=== PATIENT | female | born 1960 | race Hispanic/Latino ===

== ENCOUNTER 2017-07-20 18:04 | Inpatient (IN) | payer BC ==
[~2017-07-20] VITALS: Ht 152.4 cm; Wt 81.3 kg
[2017-07-20] MEDS ORDERED: CLINDAMYCIN PHOS 900MG/ D5W 50 50 ML IV STA (18:30)
[2017-07-20] MEDS ORDERED: IBUPROFEN 600 MG TAB PO STA (18:30)
[2017-07-20] MEDS ORDERED: SODIUM CHLORIDE 0.9% 1000ML 1,000 ML IV STA (18:30)
[2017-07-20] MEDS ORDERED: HYDROCODONE/APAP 10MG-325MG TAB PO ONE (18:30)
[2017-07-20 19:32] LABS: BASOPHILS # (AUTO) 0.1 (0.0-0.1); BASOPHILS % 0.3 % (0.0-1.0); EOSINOPHILS # (AUTO) 0.1 (0.0-0.4); EOSINOPHILS % 0.7 % (0.0-6.0); HEMATOCRIT 42.9 % (34.2-44.1); HEMOGLOBIN 14.9 g/dL (12.0-16.0); LYMPHOCYTES # (AUTO) 1.5 (1.0-3.2); MEAN CORPUSCULAR HEMOGLOBIN 28.2 pg (28-32); MEAN CORPUSCULAR HGB CONC 34.7 g/dL (31-35); MEAN CORPUSCULAR VOLUME 81.1 fL (81-99); MONOCYTES # (AUTO) 1.4 (0.2-0.8); MONOCYTES % 9.4 % (4.4-11.3); NEUTROPHILS # (AUTO) 11.9 (2.1-6.9); PLATELET COUNT 276 x10e3/uL (140-360); RED BLOOD COUNT 5.29 x10e6/uL (3.6-5.1); RED CELL DISTRIBUTION WIDTH 12.3 % (11.7-14.4)
[2017-07-20] MEDS ORDERED: DEXTROSE 50% SYRINGE 50 ML IV PRN (19:45)
[2017-07-20] MEDS ORDERED: ONDANSETRON HCL INJ 2 MG/ML VIAL IV PRN (19:45)
[2017-07-20 19:46] LABS: ALANINE AMINOTRANSFERASE 18 IU/L (0-55); ALBUMIN 3.6 g/dL (3.5-5.0); ALBUMIN/GLOBULIN RATIO 0.8 (0.8-2.0); ALKALINE PHOSPHATASE 154 IU/L (40-150); ANION GAP 16.6 mmol/L (8-16); BLOOD UREA NITROGEN 9 mg/dL (7-26); BUN/CREATININE RATIO 12 (6-25); CALCIUM 10.3 mg/dL (8.4-10.2); CARBON DIOXIDE 25 mmol/L (22-29); CHLORIDE 101 mmol/L (98-107); CREATININE, SERUM 0.74 mg/dL (0.57-1.11); EST GLOMERULAR FILTRATION RATE > 60 ML/MIN (60-); GLUCOSE 320 mg/dL (74-118); POTASSIUM 4.6 mmol/L (3.5-5.1); SODIUM 138 mmol/L (136-145)
--- NOTE | 2017-07-20 19:52 | Diagnostic Imaging Report ---
EXAMINATION: Head CT without contrast. HISTORY:Severe dizziness. COMPARISON:None. TECHNIQUE: Multidetector axial images were obtained from the foramen magnum to the vertex without contrast. The images were reconstructed using brain and bone algorithms. Thin section brain images were reformatted into coronal and sagittal planes. Intravenous contrast: None IMAGE QUALITY: Acceptable. FINDINGS: Skull/scalp: Small mid/right frontal scalp edema/hematoma. Moderate right periorbital soft tissue edema/hematoma. No acute depressed or displaced calvarial fracture. Parenchyma: Nonspecific few, scattered supratentorial white matter patchy hypodensity are likely related to small vessel ischemic changes. Dystrophic calcification in right caudate head is physiologic. No acute hemorrhage, mass or acute major vascular territorial infarct. Arteries: Atherosclerotic calcification in carotid siphon and V4 segment of left vertebral artery. Dural sinuses: No abnormal density suggestive of thrombosis. Ventricles: No hydrocephalus or displacement. Incidental cavum septum pellucidum and cavum vargae, a normal anatomic variant. Extra-axial spaces: No abnormal density. Brain volume: Mild generalized cerebral volume loss. Craniocervical junction: No mass, Chiari malformation, or basilar invagination. Sella: No mass. Paranasal/mastoid sinuses: Mild mucosal thickening in bilateral ethmoid sinuses. IMPRESSION: 1. Small mid/right frontal scalp edema/hematoma and moderate right periorbital soft tissue edema/hematoma. No acute calvarial fracture. 2. No acute posttraumatic intracranial abnormality. 3. Mild supratentorial white matter microvascular ischemic changes and mild generalized cerebral volume loss. Signed by: Dr. Reshma See M.D. on 07/20/2017 7:48 PM
[2017-07-20] MEDS ORDERED: HYDROMORPHONE 2MG/ML INJ IV PRN (20:00)
[2017-07-20] MEDS: SODIUM CHLORIDE 0.9% 1000ML 1,000 ML IV SCH (21:55)
[2017-07-20] MEDS: VANCOMYCIN 1GM/NS 250 ML 250 ML IV SCH (21:56)
[2017-07-20] MEDS: INSULIN REGULAR, HUMAN 100 UNIT/1 ML 3ML VIAL SQ SCH (21:56)
[2017-07-20] MEDS ORDERED: GLIPIZIDE5 MG PO (21:57)
[2017-07-20] MEDS ORDERED: METFORMIN HCL500 MG PO (21:57)
[2017-07-20] MEDS: PIPER-TAZ 3.375 GM 50 ML IV SCH (23:44)
[2017-07-21] MEDS: ACETAMINOPHEN 325 MG TAB PO PRN ×4 (03:07→21:05)
[2017-07-21 04:59] LABS: BASOPHILS # (AUTO) 0.1 (0.0-0.1); BASOPHILS % 0.5 % (0.0-1.0); EOSINOPHILS # (AUTO) 0.2 (0.0-0.4); EOSINOPHILS % 1.6 % (0.0-6.0); HEMATOCRIT 36.3 % (34.2-44.1); HEMOGLOBIN 12.5 g/dL (12.0-16.0); LYMPHOCYTES # (AUTO) 1.4 (1.0-3.2); LYMPHOCYTES % 11.2 % (18.0-39.1); MEAN CORPUSCULAR HEMOGLOBIN 27.8 pg (28-32); MEAN CORPUSCULAR HGB CONC 34.4 g/dL (31-35); MEAN CORPUSCULAR VOLUME 80.8 fL (81-99); MONOCYTES # (AUTO) 1.6 (0.2-0.8); MONOCYTES % 12.2 % (4.4-11.3); NEUTROPHILS # (AUTO) 9.5 (2.1-6.9); NEUTROPHILS % 74.1 % (38.7-80.0); PLATELET COUNT 221 x10e3/uL (140-360); RED BLOOD COUNT 4.49 x10e6/uL (3.6-5.1); RED CELL DISTRIBUTION WIDTH 12.2 % (11.7-14.4)
[2017-07-21 05:20] LABS: ALANINE AMINOTRANSFERASE 14 IU/L (0-55); ALBUMIN 2.7 g/dL (3.5-5.0); ALBUMIN/GLOBULIN RATIO 0.7 (0.8-2.0); ALKALINE PHOSPHATASE 116 IU/L (40-150); ANION GAP 9.4 mmol/L (8-16); BLOOD UREA NITROGEN 12 mg/dL (7-26); BUN/CREATININE RATIO 20 (6-25); CALCIUM 8.8 mg/dL (8.4-10.2); CARBON DIOXIDE 23 mmol/L (22-29); CHLORIDE 103 mmol/L (98-107); CREATININE, SERUM 0.59 mg/dL (0.57-1.11); EST GLOMERULAR FILTRATION RATE > 60 ML/MIN (60-); GLUCOSE 204 mg/dL (74-118); SODIUM 132 mmol/L (136-145)
[2017-07-21] MEDS: SODIUM CHLORIDE 0.9% 1000ML 1,000 ML IV SCH ×3 (05:33→07:54)
[2017-07-21] MEDS: PIPER-TAZ 3.375 GM 50 ML IV SCH ×3 (05:33→22:03)
[2017-07-21 05:37] LABS: POTASSIUM 3.4 mmol/L (3.5-5.1)
[2017-07-21] MEDS: VANCOMYCIN 1GM/NS 250 ML 250 ML IV SCH ×2 (07:40→20:26)
[2017-07-21] MEDS: INSULIN REGULAR, HUMAN 100 UNIT/1 ML 3ML VIAL SQ SCH ×4 (07:54→21:07)
[2017-07-21] MEDS ORDERED: PROMETHAZINE 12.5MG/ NACL 0.9% 12.5 MG/50 ML BAG IV PRN (12:45)
[2017-07-21] MEDS ORDERED: POTASSIUM CHLORIDE 20 MEQ TAB CR PO ONE (13:30)
[2017-07-21] MEDS: GLIPIZIDE 5 MG TAB PO SCH (13:34)
--- NOTE | 2017-07-21 14:18 | History and Physical ---
PRIMARY CARE PROVIDER: Dr. Vic Caro. CHIEF COMPLAINT: Right periorbital swelling and erythema. HISTORY OF PRESENT ILLNESS: Ms. Lewis is a 56-year-old lady. She bumped her head on the crown of her head at work about 2 days ago. Yesterday, when she came home from work, she felt kind of dizzy and lightheaded. She went to bed and woke up several hours later with swelling and erythema of the right side of her face, and she came to the ER for evaluation. REVIEW OF SYSTEMS: She has had subjective fever and chills. She denies weight loss. She denies sinus congestion or sore throat. She denies chest pain or palpitations. She denies shortness of breath, wheezing or cough. She denies abdominal pain, nausea, vomiting, diarrhea or melena. She denies dysuria or flank pain. She denies rash or pruritus. She denies joint pain or swelling. She has a headache and some dizziness. She denies loss of consciousness. She denies depression, agitation, homicidal or suicidal ideation. PAST MEDICAL HISTORY: Significant for longstanding, type-2 diabetes for which she takes glipizide 5 mg daily and metformin 500 mg daily. She has a history of hysterectomy and appendectomy many years ago. ALLERGIES SHE HAS A STATED ALLERGY TO RED SNAPPER FISH. FAMILY HISTORY: Significant for diabetes. SOCIAL HISTORY: The patient is . Vietnamese is her primary language. She does not smoke, drink or use illegal drugs. She is generally independently functioning. PHYSICAL EXAMINATION PSYCHIATRIC: She is alert and oriented times 3 with normal mood and affect. CONSTITUTIONAL: She has a normal body habitus. She is in no acute distress. VITAL SIGNS: Blood pressure 140/76. Pulse rate 78. Respiratory rate 16. O2 sat is 95%. Temperature currently 99.1. It was 101.8 on admission. HEENT: Her head is atraumatic. She has swelling and erythema about the right orbit and right cheek, maxilla, faith and right side of the forehead. She is anicteric. Oropharynx is clear. Ears and nares are without erythema or discharge. Oropharynx is clear. NECK: Supple. No mass or thyromegaly. LYMPHATIC SYSTEM: She has no palpable cervical, axillary or inguinal adenopathy. CARDIOVASCULAR: Heart has regular rate and rhythm without murmur or extra heart sound. She has no carotid bruit. She has no peripheral edema. She has palpable dorsal pedal pulses. RESPIRATORY: Lungs are clear to auscultation and percussion with normal respiratory effort. GASTROINTESTINAL: Abdomen is soft without organomegaly, masses or tenderness. She has normal bowel sounds present. CUTANEOUS: His skin is warm and dry to touch with no rash or skin breakdown. She has a periorbital erythema and swelling as noted above. MUSCULOSKELETAL: Her joints are in normal alignment without erythema or swelling. She has no calf tenderness. NEUROLOGIC: Exam is nonfocal with intact cranial nerves and no motor or sensory deficits. DIAGNOSTIC STUDIES: CT scan of the head showed right periorbital soft-tissue swelling. It also shows some chronic microvascular changes and atrophy consistent with age. Her flu screen is negative. CBC shows a white count of 15.05 with 79% neutrophils, 10% lymphocytes, 9% monocytes. Hemoglobin 14.9, hematocrit 42.9, platelet count 276,000. Her chemistry shows normal electrolytes. CO2 25. Creatinine 0.74 and BUN 9 for a normal GFR. Glucose is 320. Calcium 10.3. Transaminases, bilirubin and alk phos are normal. IMPRESSION AND PLAN 1. Right periorbital cellulitis with sepsis. The patient has been started on IV vancomycin and Zosyn empirically. Blood cultures are pending. 2. Type-2 diabetes is poorly controlled. Will continue glipizide. Will increase metformin to twice daily and add sliding scale insulin. 3. For prophylaxis, will use SCDs for DVT prophylaxis and Pepcid for GI prophylaxis. Job#: [id number]
[2017-07-21] MEDS: FAMOTIDINE 20 MG TAB PO SCH (17:18)
[2017-07-21 20:46] VITALS: BP 138/91
[2017-07-21 23:46] VITALS: BP 120/72
[2017-07-22 03:14] VITALS: BP 105/60
[2017-07-22] MEDS: PIPER-TAZ 3.375 GM 50 ML IV SCH ×3 (05:01→22:00)
[2017-07-22 05:02] VITALS: BP 105/70
[2017-07-22] MEDS: ACETAMINOPHEN 325 MG TAB PO PRN ×3 (06:15→18:41)
[2017-07-22 06:57] LABS: BASOPHILS # (AUTO) 0.1 (0.0-0.1); BASOPHILS % 0.5 % (0.0-1.0); EOSINOPHILS # (AUTO) 0.3 (0.0-0.4); HEMATOCRIT 37.9 % (34.2-44.1); HEMOGLOBIN 12.9 g/dL (12.0-16.0); LYMPHOCYTES # (AUTO) 1.6 (1.0-3.2); MEAN CORPUSCULAR HEMOGLOBIN 27.8 pg (28-32); MEAN CORPUSCULAR VOLUME 81.7 fL (81-99); MONOCYTES % 10.8 % (4.4-11.3); NEUTROPHILS # (AUTO) 6.4 (2.1-6.9); NEUTROPHILS % 68.2 % (38.7-80.0); PLATELET COUNT 244 x10e3/uL (140-360); RED BLOOD COUNT 4.64 x10e6/uL (3.6-5.1); RED CELL DISTRIBUTION WIDTH 12.3 % (11.7-14.4)
[2017-07-22 07:40] LABS: ANION GAP 13.7 mmol/L (8-16); BLOOD UREA NITROGEN 8 mg/dL (7-26); BUN/CREATININE RATIO 15 (6-25); CALCIUM 9.1 mg/dL (8.4-10.2); CARBON DIOXIDE 24 mmol/L (22-29); CHLORIDE 107 mmol/L (98-107); CREATININE, SERUM 0.55 mg/dL (0.57-1.11); EST GLOMERULAR FILTRATION RATE > 60 ML/MIN (60-); GLUCOSE 222 mg/dL (74-118); POTASSIUM 3.7 mmol/L (3.5-5.1); SODIUM 141 mmol/L (136-145)
[2017-07-22] MEDS: FAMOTIDINE 20 MG TAB PO SCH ×2 (09:15→17:44)
[2017-07-22] MEDS: VANCOMYCIN 1GM/NS 250 ML 250 ML IV SCH ×2 (09:15→23:55)
[2017-07-22] MEDS: METFORMIN HCL 500 MG TAB PO SCH ×2 (09:15→17:44)
[2017-07-22] MEDS: INSULIN REGULAR, HUMAN 100 UNIT/1 ML 3ML VIAL SQ SCH ×4 (09:15→21:30)
[2017-07-22] MEDS: GLIPIZIDE 5 MG TAB PO SCH (09:15)
[2017-07-22 10:03] LABS: THYROID STIMULATING HORMONE 1.003 uIU/mL (0.350-4.940)
[2017-07-23] MEDS: ACETAMINOPHEN 325 MG TAB PO PRN ×3 (04:00→14:20)
[2017-07-23 04:45] LABS: BASOPHILS # (AUTO) 0.1 (0.0-0.1); BASOPHILS % 0.6 % (0.0-1.0); EOSINOPHILS # (AUTO) 0.3 (0.0-0.4); EOSINOPHILS % 3.1 % (0.0-6.0); HEMATOCRIT 37.3 % (34.2-44.1); HEMOGLOBIN 12.6 g/dL (12.0-16.0); LYMPHOCYTES % 22.2 % (18.0-39.1); MEAN CORPUSCULAR HEMOGLOBIN 27.8 pg (28-32); MEAN CORPUSCULAR HGB CONC 33.8 g/dL (31-35); MEAN CORPUSCULAR VOLUME 82.2 fL (81-99); MONOCYTES # (AUTO) 1.1 (0.2-0.8); MONOCYTES % 11.9 % (4.4-11.3); NEUTROPHILS # (AUTO) 5.6 (2.1-6.9); NEUTROPHILS % 61.8 % (38.7-80.0); PLATELET COUNT 268 x10e3/uL (140-360); RED BLOOD COUNT 4.54 x10e6/uL (3.6-5.1); RED CELL DISTRIBUTION WIDTH 12.6 % (11.7-14.4)
[2017-07-23] MEDS: PIPER-TAZ 3.375 GM 50 ML IV SCH ×2 (05:45→14:20)
--- NOTE | 2017-07-23 06:58 | Diagnostic Imaging Report ---
EXAMINATION: CHEST SINGLE (PORTABLE) INDICATION: Pneumonia, shortness of breath COMPARISON: None FINDINGS: TUBES and LINES: None. LUNGS: Lungs are not well inflated. Lungs are clear. There is no evidence of pneumonia or pulmonary edema. PLEURA: No pleural effusion or pneumothorax. HEART AND MEDIASTINUM: The cardiomediastinal silhouette is unremarkable. BONES AND SOFT TISSUES: No acute osseous lesion. Soft tissues are unremarkable. UPPER ABDOMEN: No free air under the diaphragm. IMPRESSION: No acute thoracic abnormality. Signed by: Dr. Devon Ovalle M.D. on 07/23/2017 6:55 AM
[2017-07-23 07:51] LABS: BLOOD UREA NITROGEN 8 mg/dL (7-26); BUN/CREATININE RATIO 14 (6-25); CALCIUM 9.3 mg/dL (8.4-10.2); CARBON DIOXIDE 26 mmol/L (22-29); CHLORIDE 104 mmol/L (98-107); CREATININE, SERUM 0.58 mg/dL (0.57-1.11); EST GLOMERULAR FILTRATION RATE > 60 ML/MIN (60-); GLUCOSE 223 mg/dL (74-118); SODIUM 139 mmol/L (136-145)
[2017-07-23] MEDS: GLIPIZIDE 5 MG TAB PO SCH (08:31)
[2017-07-23] MEDS: OSELTAMIVIR PHOSPHATE 75 MG CAP PO SCH ×2 (08:31→16:50)
[2017-07-23] MEDS: VANCOMYCIN 1GM/NS 250 ML 250 ML IV SCH ×2 (08:31→23:00)
[2017-07-23] MEDS: INSULIN REGULAR, HUMAN 100 UNIT/1 ML 3ML VIAL SQ SCH ×4 (08:31→21:00)
[2017-07-23] MEDS: FAMOTIDINE 20 MG TAB PO SCH ×2 (08:31→16:50)
[2017-07-23] MEDS: METFORMIN HCL 500 MG TAB PO SCH ×2 (08:31→16:50)
[2017-07-23 12:15] VITALS: BP 130/86
[2017-07-23 13:15] VITALS: BP 130/86
[2017-07-23 14:04] VITALS: BP 130/86
[2017-07-23] MEDS ORDERED: SODIUM CHLORIDE 0.9% 250ML 250 ML ONE ×2 (14:23→22:47)
[2017-07-23] MEDS ORDERED: ACETAMIN/BUTALBITAL/CAFFEINE TAB PO PRN (14:30)
[2017-07-23 16:00] VITALS: BP 123/78
[2017-07-23 22:04] VITALS: BP 128/78
[2017-07-24] VITALS (8 sets, daily range): BP systolic 98–139; BP diastolic 63–88
[2017-07-24] MEDS: PIPER-TAZ 3.375 GM 50 ML IV SCH ×4 (00:30→21:49)
[2017-07-24] MEDS: ACETAMINOPHEN 325 MG TAB PO PRN ×3 (06:31→18:36)
[2017-07-24 08:19] LABS: BASOPHILS % 0.6 % (0.0-1.0); EOSINOPHILS % 0.2 % (0.0-6.0); HEMATOCRIT 26.8 % (34.2-44.1); HEMOGLOBIN 8.5 g/dL (12.0-16.0); LYMPHOCYTES # (AUTO) 0.6 (1.0-3.2); LYMPHOCYTES % 11.5 % (18.0-39.1); MEAN CORPUSCULAR HEMOGLOBIN 34.6 pg (28-32); MEAN CORPUSCULAR HGB CONC 31.7 g/dL (31-35); MEAN CORPUSCULAR VOLUME 108.9 fL (81-99); MONOCYTES # (AUTO) 0.8 (0.2-0.8); MONOCYTES % 15.4 % (4.4-11.3); NEUTROPHILS # (AUTO) 3.9 (2.1-6.9); NEUTROPHILS % 71.4 % (38.7-80.0); PLATELET COUNT 52 x10e3/uL (140-360); RED BLOOD COUNT 2.46 x10e6/uL (3.6-5.1)
[2017-07-24] MEDS: METFORMIN HCL 500 MG TAB PO SCH ×2 (08:21→17:12)
[2017-07-24] MEDS: VANCOMYCIN 1GM/NS 250 ML 250 ML IV SCH ×2 (08:21→21:40)
[2017-07-24] MEDS: GLIPIZIDE 5 MG TAB PO SCH (08:21)
[2017-07-24] MEDS: FAMOTIDINE 20 MG TAB PO SCH ×2 (08:21→17:12)
[2017-07-24] MEDS: OSELTAMIVIR PHOSPHATE 75 MG CAP PO SCH ×2 (08:21→17:12)
[2017-07-24] MEDS: INSULIN REGULAR, HUMAN 100 UNIT/1 ML 3ML VIAL SQ SCH ×4 (08:21→21:49)
[2017-07-24 08:28] LABS: ANION GAP 8.5 mmol/L (8-16); BLOOD UREA NITROGEN 14 mg/dL (7-26); BUN/CREATININE RATIO 28 (6-25); CALCIUM 8.4 mg/dL (8.4-10.2); CARBON DIOXIDE 35 mmol/L (22-29); CHLORIDE 98 mmol/L (98-107); EST GLOMERULAR FILTRATION RATE > 60 ML/MIN (60-); GLUCOSE 83 mg/dL (74-118); POTASSIUM 3.5 mmol/L (3.5-5.1); SODIUM 138 mmol/L (136-145)
[2017-07-24 09:12] LABS: MAGNESIUM 1.2 MG/DL (1.3-2.1)
[2017-07-24 09:34] LABS: PLATELET ESTIMATE MODERATELY DECREASED; RBC MORPHOLOGY COMMENT NORMAL
[2017-07-24 09:35] LABS: ANISOCYTOSIS SLIG; HYPOCHROMASIA SLIGHT; PLATELET MORPHOLOGY COMMENT NORMAL; POIKILOCYTOSIS SLIGHT
[2017-07-24] MEDS ORDERED: MAGNESIUM SULFATE 2GM/50ML 50 ML IV ONE (20:30)
[2017-07-25 00:40] VITALS: BP 140/74
[2017-07-25] MEDS: PIPER-TAZ 3.375 GM 50 ML IV SCH ×2 (05:42→13:47)
[2017-07-25 07:04] LABS: BASOPHILS # (AUTO) 0.1 (0.0-0.1); BASOPHILS % 0.7 % (0.0-1.0); EOSINOPHILS # (AUTO) 0.3 (0.0-0.4); EOSINOPHILS % 4.1 % (0.0-6.0); LYMPHOCYTES # (AUTO) 1.7 (1.0-3.2); LYMPHOCYTES % 23.5 % (18.0-39.1); MEAN CORPUSCULAR HEMOGLOBIN 27.8 pg (28-32); MEAN CORPUSCULAR HGB CONC 33.8 g/dL (31-35); MEAN CORPUSCULAR VOLUME 82.5 fL (81-99); MONOCYTES # (AUTO) 0.8 (0.2-0.8); MONOCYTES % 11.6 % (4.4-11.3); NEUTROPHILS # (AUTO) 4.2 (2.1-6.9); NEUTROPHILS % 59.4 % (38.7-80.0); PLATELET COUNT 295 x10e3/uL (140-360); RED BLOOD COUNT 4.85 x10e6/uL (3.6-5.1)
[2017-07-25 07:15] LABS: HEMOGLOBIN 13.5 g/dL (12.0-16.0)
[2017-07-25 07:25] LABS: BLOOD UREA NITROGEN 13 mg/dL (7-26); BUN/CREATININE RATIO 23 (6-25); CALCIUM 9.4 mg/dL (8.4-10.2); CARBON DIOXIDE 24 mmol/L (22-29); CHLORIDE 106 mmol/L (98-107); CREATININE, SERUM 0.57 mg/dL (0.57-1.11); EST GLOMERULAR FILTRATION RATE > 60 ML/MIN (60-); GLUCOSE 238 mg/dL (74-118); MAGNESIUM 1.9 MG/DL (1.3-2.1); SODIUM 140 mmol/L (136-145)
[2017-07-25] MEDS ORDERED: GLIPIZIDE 5 MG TAB PO SCH (07:30)
[2017-07-25] MEDS: INSULIN REGULAR, HUMAN 100 UNIT/1 ML 3ML VIAL SQ SCH ×3 (07:30→16:13)
[2017-07-25] MEDS: FAMOTIDINE 20 MG TAB PO SCH ×2 (07:30→16:12)
[2017-07-25 08:00] VITALS: BP 140/74
[2017-07-25] MEDS: METFORMIN HCL 500 MG TAB PO SCH ×2 (08:00→16:12)
[2017-07-25 08:14] VITALS: BP 116/58
[2017-07-25] MEDS: VANCOMYCIN 1GM/NS 250 ML 250 ML IV SCH (08:30)
[2017-07-25] MEDS: ZINC SULFATE 220 MG CAP PO SCH ×2 (09:00→16:13)
[2017-07-25] MEDS: MAGNESIUM OXIDE 400 MG TAB PO SCH ×2 (09:00→16:12)
[2017-07-25] MEDS: ASCORBIC ACID 500 MG TAB PO SCH ×2 (09:00→16:12)
[2017-07-25] MEDS ORDERED: MULTIVITAMINS/MINERALS TAB PO SCH (09:00)
[2017-07-25] MEDS: OSELTAMIVIR PHOSPHATE 75 MG CAP PO SCH ×2 (09:00→16:12)
[2017-07-25] MEDS: OYST-CAL-D 500MG TABLET PO SCH ×2 (09:00→15:00)
[2017-07-25] MEDS ORDERED: SODIUM CHLORIDE 0.9% 250ML 250 ML ONE (10:50)
[2017-07-25 11:57] VITALS: BP 130/68
[2017-07-25] MEDS ORDERED: ZINC SULFATE220 M1 PO (15:04)
[2017-07-25] MEDS ORDERED: TAMIFLU75 MG PO (15:04)
[2017-07-25] MEDS ORDERED: METFORMIN HCL500 MG PO (15:04)
[2017-07-25] MEDS ORDERED: BACTRIM DS TAB1 EACH PO (15:04)
[2017-07-25] MEDS ORDERED: LEVAQUIN500 MG PO (15:04)
[2017-07-25] MEDS ORDERED: Multivitamins/Minerals PO (15:04)
[2017-07-25] MEDS ORDERED: ASCORBIC ACID500 MG PO (15:04)
[2017-07-25] MEDS ORDERED: GLIPIZIDE5 MG PO (15:04)
[2017-07-25] MEDS ORDERED: MAGNESIUM OXID400 MG PO (15:04)
[2017-07-25] MEDS ORDERED: Calcium Carbonate PO (15:04)
[2017-07-25 15:55] VITALS: BP 136/79
--- NOTE | 2017-07-25 23:14 | Discharge Summary ---
ADMISSION DIAGNOSES: 1. Right periorbital cellulitis with sepsis. 2. Type 2 diabetes that is poorly controlled. DISCHARGE DIAGNOSES: 1. Right periorbital cellulitis with sepsis. 2. Type 2 diabetes that is poorly controlled. 3. Flu. HISTORY: Patient has a history of type 2 diabetes, history of hysterectomy and appendectomy. Patient lost her insurance sometime during the year and her insurance did not start until July 082017, therefore she was not filling her diabetes medication as prescribed. HOSPITAL COURSE: Moafq[age]-old female presented after bumping her head on the crown of her head at work about 2 days ago. After coming home from work, the next day she felt dizzy and lightheaded. She went to bed and woke up several hours later with swelling, erythema of the right side of her face. On admission, the patient was started on Zosyn and vancomycin empirically. Blood cultures were ordered, which were negative, and patient was resumed on her normal dose of glipizide and metformin with sliding scale insulin. CT of the brain showed small mid/right frontal scalp edema/hematoma and moderate right periorbital soft tissue edema/hematoma. No acute fracture. No acute posttraumatic intracranial abnormality. Chest x-ray showed no acute thoracic abnormality. Urine culture negative. Blood cultures negative. Flu was negative although the patient had flu-like symptoms and was started on Tamiflu. Vital signs were stable. On date of discharge, sodium 140, potassium 4.0, creatinine of 0.57, BUN of 13, GFR of over 60. WBC of 7.07, hemoglobin of 13.5, hematocrit of 40. Vital signs stable. Patient not complaining of headache or dizziness. 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 Patient will be discharged home with family and can follow up with primary care in 1 to 2 weeks and should follow up with A1c after taking her diabetes medications for about 3 months as prescribed. Dictated by Roula Garduno NP VIOLETTA MASTERSON MD Job#: [id number]
== END 2017-07-25 19:20 | disposition home or self-care (01) | DRG 872 ==
LOC: ER 18:04 → EDBEDREQ 19:50 → ERHOLD 21:08 → MED/SURG3 07-23 11:48
PROVIDERS: ADMIT Internal Medicine; ATTEND Internal Medicine
DX: A41.9 Sepsis, unspecified organism (principal); L03.213 Periorbital cellulitis; E11.65 Type 2 diabetes mellitus with hyperglycemia; E83.42 Hypomagnesemia; J11.1 Influenza due to unidentified influenza virus with other respiratory manifestations; H05.221 Edema of right orbit; Z79.4 Long term (current) use of insulin; R51 Headache; P12.3 Bruising of scalp due to birth injury
CPT/HCPCS: 36415; 70450; 71045; 80048; 80053; 80202; 82948; 83036; 83735; 84443; 85025; 87040; 87086; 87400; 96360; 96365; 99284; J2405; J2543; J3370; J7030; J7050

== ENCOUNTER 2018-02-13 15:20 | Inpatient (IN) | payer BC ==
[~2018-02-13] VITALS: Ht 152.4 cm; Wt 82.4 kg
[~2018-02-13 15:20] MED LIST: ASCORBIC ACID500 MG PO; BACTRIM DS TAB1 EACH PO; Calcium Carbonate PO; GLIPIZIDE5 MG PO; LEVAQUIN500 MG PO; MAGNESIUM OXID400 MG PO; METFORMIN HCL500 MG PO; Multivitamins/Minerals PO; TAMIFLU75 MG PO; ZINC SULFATE220 M1 PO
[2018-02-13] MEDS ORDERED: MORPHINE SULFATE INJ 4 MG/ML INJ IV STA (15:31)
[2018-02-13] MEDS ORDERED: ONDANSETRON HCL INJ 2 MG/ML VIAL IV STA (15:31)
[2018-02-13] MEDS ORDERED: VANCOMYCIN 1GM/NS 250 ML 250 ML IV STA (15:31)
[2018-02-13] MEDS ORDERED: SODIUM CHLORIDE 0.9% 1000ML 1,000 ML IV STA (15:31)
[2018-02-13] MEDS ORDERED: ONDANSETRON HCL INJ 2 MG/ML VIAL IV PRN (15:45)
[2018-02-13] MEDS ORDERED: MORPHINE SULFATE 2 MG/ML SYR IV PRN (15:45)
[2018-02-13 16:00] LABS: BASOPHILS # (AUTO) 0.1 (0.0-0.1); BASOPHILS % 0.4 % (0.0-1.0); EOSINOPHILS % 0.1 % (0.0-6.0); HEMOGLOBIN 13.8 g/dL (12.0-16.0); LYMPHOCYTES # (AUTO) 1.4 (1.0-3.2); LYMPHOCYTES % 7.5 % (18.0-39.1); MEAN CORPUSCULAR HEMOGLOBIN 27.2 pg (28-32); MEAN CORPUSCULAR HGB CONC 34.5 g/dL (31-35); MEAN CORPUSCULAR VOLUME 78.9 fL (81-99); MONOCYTES # (AUTO) 1.8 (0.2-0.8); MONOCYTES % 9.6 % (4.4-11.3); NEUTROPHILS # (AUTO) 15.3 (2.1-6.9); NEUTROPHILS % 81.6 % (38.7-80.0); PLATELET COUNT 271 x10e3/uL (140-360); RED BLOOD COUNT 5.07 x10e6/uL (3.6-5.1); RED CELL DISTRIBUTION WIDTH 12.3 % (11.7-14.4)
[2018-02-13 16:15] LABS: ALANINE AMINOTRANSFERASE 22 IU/L (0-55); ALBUMIN 3.2 g/dL (3.5-5.0); ALBUMIN/GLOBULIN RATIO 0.6 (0.8-2.0); ALKALINE PHOSPHATASE 196 IU/L (40-150); ANION GAP 16.8 mmol/L (8-16); BLOOD UREA NITROGEN 11 mg/dL (7-26); BUN/CREATININE RATIO 15 (6-25); CALCIUM 10.1 mg/dL (8.4-10.2); CARBON DIOXIDE 21 mmol/L (22-29); CHLORIDE 96 mmol/L (98-107); CREATININE, SERUM 0.74 mg/dL (0.57-1.11); EST GLOMERULAR FILTRATION RATE > 60 ML/MIN (60-); GLUCOSE 378 mg/dL (74-118); POTASSIUM 3.8 mmol/L (3.5-5.1); SODIUM 130 mmol/L (136-145)
[2018-02-13] MEDS ORDERED: ACETAMINOPHEN 325 MG TAB PO ONE (16:15)
--- NOTE | 2018-02-13 16:32 | Diagnostic Imaging Report ---
PROCEDURE:X-RAY RIGHT FOOT, COMPLETE COMPARISON:None. INDICATIONS:ABSCESS ON BOTTOM OF RIGHT FOOT, SWOLLEN SINCE SATURDAY FINDINGS: Normal mineralization. No acute, displaced fracture or dislocation. No lytic or blastic lesions. No cortical erosions or destruction. Prominent soft tissue swelling inferior to the metatarsal bones on the lateral view, which may correspond to the known abscess. Large inferior calcaneal enthesophyte. Moderate to marked soft tissue swelling noted in the dorsal aspect of the foot. CONCLUSION: Prominent soft tissue swelling inferior to the metatarsal bones on the lateral view may correspond to the known abscess. No cortical erosion or destruction. Jose Herman M.D. Dictated by: Jose Herman M.D. on 02/13/2018 at 16:37 Electronically approved by: Jose Herman M.D. on 02/13/2018 at 16:37
[2018-02-13] MEDS ORDERED: INSULIN REGULAR, HUMAN 100 UNIT/1 ML 3ML VIAL SQ ONE (16:45)
[2018-02-13 17:21] LABS: LYMPHOCYTES % (MANUAL) 6 % (19-48); MONOCYTES % (MANUAL) 6 % (3.4-9.0); NEUTROPHILS % (MANUAL) 88 % (40-74)
[2018-02-13 17:22] LABS: PLATELET ESTIMATE ADEQUATE; PLATELET MORPHOLOGY COMMENT NORMAL; RBC MORPHOLOGY COMMENT NORMAL
[2018-02-13] MEDS: MORPHINE SULFATE INJ 4 MG/ML INJ IV PRN (17:43)
[2018-02-13 20:00] VITALS: BP 107/57
[2018-02-13] MEDS ORDERED: DEXTROSE 50% SYRINGE 50 ML IV PRN (21:30)
[2018-02-13] MEDS ORDERED: CEFEPIME HCL 1 GM VIAL IV SCH (22:00)
[2018-02-13] MEDS: INSULIN REGULAR, HUMAN 100 UNIT/1 ML 3ML VIAL SQ SCH (22:00)
[2018-02-13] MEDS: CEFEPIME HCL 1 GM VIAL IV SCH (22:00)
[2018-02-14] VITALS (8 sets, daily range): BP systolic 109–126; BP diastolic 59–79
[2018-02-14] MEDS: ACETAMINOPHEN 325 MG TAB PO PRN ×2 (00:29→21:30)
[2018-02-14] MEDS ORDERED: METOCLOPRAMIDE HCL 10 MG/2ML VIAL IV PRN (01:15)
--- NOTE | 2018-02-14 01:43 | History and Physical ---
DATE OF THIS ENCOUNTER: February 13, 2018 PRIMARY CARE DOCTOR: Dr. Ho [facility] DOCTOR: Dr. Walter Mora HISTORY: Ms. Lewis is a pleasant 57-year-old female with right foot pain. Patient started having nausea about 4 days previously. She started to have some low-grade fevers and chills. Today, she was at work, but she had persistent nausea. She went to her doctor because of this and presented her right foot which was having some weepage and increasing redness. Due to the large appearance and erythema and swelling and discharge, she was sent immediately to the emergency room. 100.8 temperature maximum in the emergency room. 19 white count. Foot x-ray showed no definite osteomyelitis. She was recommended for hospitalization. PAST MEDICAL HISTORY: Diabetes, hysterectomy, appendectomy, history of some previous bunion or callus operation on right foot. MEDICINES: Medicines list reviewed per electronic record. ALLERGIES: RED SNAPPER FISH ONLY. SOCIAL HISTORY: No smoking, no drinking, no drugs. 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 FAMILY HISTORY: Noncontributory. REVIEW OF SYSTEMS: GENERAL: No weight changes. OPHTHALMOLOGIC: Without any cataracts. ENT: No bleeding in mouth. ENDOCRINE: No thyroid disease known. PULMONARY: No asthma. CARDIAC: No heart attacks. GI: No constipation. : No blood in urine. DERMATOLOGIC: No rash. NEUROLOGIC: No seizures. PSYCHIATRIC: No depression. OBJECTIVE: VITAL SIGNS: Afebrile, vital signs noted per electronic record. GENERAL: In no acute distress, alert and calm. HEENT: Normocephalic, atraumatic. NECK: Supple. Throat midline. LUNGS: Bilateral air entry, clear. CARDIOVASCULAR: S1, S2. No murmurs, rubs, or gallops. ABDOMEN: Soft, nontender. EXTREMITIES: No clubbing, no cyanosis, there is no generalized edema to legs. However, locally focally to the right foot around the 5th and 4th digits, there is weeping, there is redness, there is pain, there is warmth. INTEGUMENT: No purpura, no generalized rash. LABS: 19 white count. 3.9 potassium, 21 bicarbonate, 311 glucose. Total bilirubin 1.7. Alkaline phosphatase 196. IMPRESSION AND PLAN: 1. Severe right foot cellulitis. 2. Evolving abscess of right foot, rule out deep tissue infection. 3. Diabetes, uncontrolled. 4. Leukocytosis. 5. Hyponatremia. 6. Mildly elevated liver function tests. High-dose intravenous antibiotics will be given for both gram-positive and gram-negative . Check hemoglobin A1c. Control glucose slowly. Podiatry consult as I suspect this lesion will have to be debrided and will hopefully be able to prevent amputation. Follow up cultures. Check thyroid-stimulating hormone level. Thank you very much, Dr. Caro for allowing Dr. Mora and I the chance to participate in care of Ms. Lewis. Do not hesitate to contact us if we can help in any way. Job#: [id number]
[2018-02-14] MEDS ORDERED: VANCOMYCIN 750MG/NS 150ML IVPB 150 ML IV SCH (02:00)
[2018-02-14] MEDS: ENOXAPARIN SOD INJ 40 MG/0.4 ML SYR SC SCH ×2 (03:15→17:08)
[2018-02-14 04:55] LABS: BASOPHILS # (AUTO) 0.1 (0.0-0.1); BASOPHILS % 0.4 % (0.0-1.0); EOSINOPHILS # (AUTO) 0.2 (0.0-0.4); EOSINOPHILS % 1.3 % (0.0-6.0); HEMATOCRIT 35.2 % (34.2-44.1); HEMOGLOBIN 12.1 g/dL (12.0-16.0); LYMPHOCYTES # (AUTO) 1.3 (1.0-3.2); LYMPHOCYTES % 11.7 % (18.0-39.1); MEAN CORPUSCULAR HEMOGLOBIN 27.4 pg (28-32); MEAN CORPUSCULAR HGB CONC 34.4 g/dL (31-35); MEAN CORPUSCULAR VOLUME 79.6 fL (81-99); MONOCYTES # (AUTO) 1.4 (0.2-0.8); MONOCYTES % 12.4 % (4.4-11.3); NEUTROPHILS # (AUTO) 8.4 (2.1-6.9); NEUTROPHILS % 73.5 % (38.7-80.0); PLATELET COUNT 243 x10e3/uL (140-360); RED BLOOD COUNT 4.42 x10e6/uL (3.6-5.1); RED CELL DISTRIBUTION WIDTH 12.3 % (11.7-14.4)
[2018-02-14 05:15] LABS: ALANINE AMINOTRANSFERASE 17 IU/L (0-55); ALBUMIN 2.6 g/dL (3.5-5.0); ALBUMIN/GLOBULIN RATIO 0.6 (0.8-2.0); ALKALINE PHOSPHATASE 153 IU/L (40-150); BLOOD UREA NITROGEN 12 mg/dL (7-26); BUN/CREATININE RATIO 19 (6-25); CALCIUM 9.4 mg/dL (8.4-10.2); CARBON DIOXIDE 22 mmol/L (22-29); CHLORIDE 103 mmol/L (98-107); CREATININE, SERUM 0.62 mg/dL (0.57-1.11); EST GLOMERULAR FILTRATION RATE > 60 ML/MIN (60-); GLUCOSE 189 mg/dL (74-118); MAGNESIUM 1.7 MG/DL (1.3-2.1); PHOSPHORUS 2.8 MG/DL (2.3-4.7); SODIUM 137 mmol/L (136-145)
[2018-02-14 05:34] LABS: THYROID STIMULATING HORMONE 1.029 uIU/mL (0.350-4.940)
[2018-02-14 05:39] LABS: ERYTHROCYTE SEDIMENTATION RATE 74 mm/hr (0-20)
[2018-02-14] MEDS: CEFEPIME HCL 1 GM VIAL IV SCH ×3 (07:26→22:00)
[2018-02-14] MEDS: GLIPIZIDE 5 MG TAB PO SCH (09:01)
[2018-02-14] MEDS: VANCOMYCIN 750MG/NS 150ML IVPB 150 ML IV SCH ×2 (09:01→21:00)
[2018-02-14] MEDS: INSULIN REGULAR, HUMAN 100 UNIT/1 ML 3ML VIAL SQ SCH ×4 (09:04→21:00)
--- NOTE | 2018-02-14 09:20 | Consultation ---
DATE OF CONSULTATION: February 14, 2018 ADMITTING PHYSICIANS: Dr. Mora/Dr. Carlos. REASON FOR CONSULTATION: Patient being diabetic with cellulitis right foot. HISTORY OF PRESENT ILLNESS: Patient was admitted through the emergency room after being seen by Dr. Vic Caro after patient was suffering some chills and fever for the last couple of days. Since she has been in the hospital, she is denying any issue with fever, chills, nausea or vomiting since she has been getting the IV antibiotics. She relates that her foot was very swollen, and it started draining pus in between the 4th interspace. PAST MEDICAL HISTORY: Remarkable for noninsulin dependent diabetes. Other than that, denies any other medical issues. PAST SURGICAL HISTORY: Remarkable for hysterectomy, appendectomy and right foot surgery approximately a year ago. ALLERGIES: RED SNAPPER. SOCIAL HISTORY: Denies any smoking, drinking or recreational drug use. Lives with her . Has 1 kid. FAMILY HISTORY: Remarkable for diabetes. CURRENT MEDICATIONS: Noted list in the chart including IV cefepime and IV vancomycin. REVIEW OF SYSTEMS CARDIAC: Denies any palpitations or arrhythmias. RESPIRATORY: Denies any shortness of breath or productive cough. GASTROINTESTINAL: Denies any diarrhea or constipation. GENITOURINARY: Denies any problems voiding or hematuria. VITALS: Afebrile. Pulse rate 88, respirations 20, blood pressure 126/79, O2 saturation 96%. LABS: Noted. Has a white blood cell count dropping from 18.6 to 11.4 since she has been getting her IV antibiotics. Hemoglobin 12.1, with a platelet count of 243. Has a blood glucose of 216. PODIATRIC PHYSICAL EXAMINATION VASCULAR: Pedal pulses to both the dorsalis pedis and posterior tibial areas are palpable. CFT to all toes less than 4 seconds. NEUROLOGICAL: Some loss of protective sensation when utilizing Baldwin-Mayela 5.07 monofilament wire. MUSCULOSKELETAL: Examination shows muscle mass to be asymmetrical. Some swelling noted to the right foot and leg when compared to the contralateral side. DERMATOLOGICAL: Some drainage is between the 4th interspace of right foot with minimal foul smell. Has an ulceration measuring 1.5 to 2 cm in diameter in the 4th interspace with edema both plantarly and dorsally. X RAYS: Reviewed, reveal no gas in tissue or evidence of any type of osteomyelitic changes. ASSESSMENT: Abscess with a grade-4 ulcer, right foot, with diabetic neuropathy. PLAN: Will continue IV antibiotics. Will start diluted wet-to-dry Betadine dressings in between the toes b.i.d. Will treat the patient conservatively for now. Debridement of the ulcer will be performed some time in the next 2 or 3 days depending on how the patient responds. The patient understands if not responsive may need surgical intervention, which may even include partial amputation of the foot. Job#: [id number]
[2018-02-14] MEDS: MORPHINE SULFATE INJ 4 MG/ML INJ IV PRN ×2 (09:28→17:18)
[2018-02-15] VITALS (7 sets, daily range): BP systolic 101–136; BP diastolic 62–74
--- NOTE | 2018-02-15 03:03 | Progress Note ---
DATE: February 14, 2018 INTERNAL MEDICINE PROGRESS NOTE This is coverage for Dr. Walter Mora. SUBJECTIVE: Ms. Lewis was seen and examined at bedside. She had nausea that continued. However, it is better because the medicines can control it today. Blood cultures 1 out of 2 coming back positive. Wound continued to drain. Podiatry saw the patient. Some coughing as well. REVIEW OF SYSTEMS: No diarrhea, no rash. OBJECTIVE: VITAL SIGNS: Afebrile, vital signs noted per electronic record. GENERAL: No acute distress, better color today, still slightly stronger. HEENT: Normocephalic, atraumatic. NECK: Supple. Throat midline. LUNGS: Bilateral air entry, decreased breath sounds at base. Mostly clear. CARDIOVASCULAR: S1, S2. No murmurs, rubs, or gallops. ABDOMEN: Soft, nontender. EXTREMITIES: No clubbing, no cyanosis, there is no generalized edema. However, there is a focal process to the affected foot with swelling, erythema, and redness. INTEGUMENT: No generalized rash, no purpura. LABS: Include white count which came down to 12,000. 35 hematocrit, 243,000 platelets. ESR 74. Glucose better towards the evening with 200s and 100s. 4.0 potassium, 0.6 creatinine. Alkaline phosphatase 153, albumin 2.6. IMPRESSION AND PLAN: 1. Foot abscess. 2. Grade 4 ulcer, right foot. 3. Diabetic neuropathy. 4. Uncontrolled diabetes. 5. Leukocytosis, improved. 6. Hyponatremia, improved. Repeat complete blood cell count in a few days to ensure normalization. Follow up blood culture as it is coming positive. Follow up wound culture to ensure the staphylococcus is appropriately treated. As staphylococcus is being found, vancomycin will be continued for now and will have to ensure appropriate adjustments are being done. Patient will have continued optimization of her diabetes noting her hemoglobin A1c was 11.4%. Podiatry expected to debride in the next few days and even consider amputation if she fails resolution on debridement. Job#: [id number]
[2018-02-15] MEDS: CEFEPIME HCL 1 GM VIAL IV SCH (05:51)
[2018-02-15] MEDS: GLIPIZIDE 5 MG TAB PO SCH (07:39)
[2018-02-15] MEDS: INSULIN REGULAR, HUMAN 100 UNIT/1 ML 3ML VIAL SQ SCH ×2 (08:22→12:51)
[2018-02-15] MEDS: VANCOMYCIN 750MG/NS 150ML IVPB 150 ML IV SCH (09:07)
[2018-02-15] MEDS: VANCOMYCIN 1GM/NS 250 ML 250 ML IV SCH ×2 (13:01→23:39)
[2018-02-15] MEDS: MORPHINE SULFATE INJ 4 MG/ML INJ IV PRN (15:30)
[2018-02-15 15:42] LABS: FREE T4 (FREE THYROXINE) 1.18 ng/dL (0.9-1.8); THYROID STIMULATING HORMONE 2.304 uIU/mL (0.350-4.940)
[2018-02-15] MEDS: ENOXAPARIN SOD INJ 40 MG/0.4 ML SYR SC SCH (16:40)
[2018-02-15] MEDS: NYSTATIN 100,000 UNITS/GM CRM 30GM TUBE TOP SCH (16:40)
[2018-02-15] MEDS: INSULIN LISPRO 100 UNIT/1 ML 3ML VIAL SQ SCH ×3 (16:49→21:00)
--- NOTE | 2018-02-15 18:53 | Progress Note ---
DATE: February 15, 2018 SUBJECTIVE: Patient was seen at bedside. Doing somewhat better. Having more appetite. Still having some pain to the right lower extremity. OBJECTIVE VITALS: Afebrile, pulse rate 78, respirations 17, blood pressure 113/64, O2 saturation 98%. EXTREMITIES: Ulceration to the right lower extremity is at the 4th interspace. There is some abscess formation noted in the lateral aspect of the 5th digit, right foot with ascending cellulitis dorsally and plantarly. Ulcer is approximately 1.5 cm in diameter down to muscle, tendon and close to bone. ASSESSMENT 1. Grade 3 ulcer abscess. 2. Diabetic neuropathy with possible osteomyelitis. PLAN: Sharp excisional debridement of the ulcer was carried down to muscle. Devitalized tissue sharply excised through skin, subcutaneous tissue and muscle down to the bone. The abscess was I and D. Approximately, 2 mL of purulent drainage was drained. Will start applying Santyl collagenase followed by dilute wet-to-dry Betadine to the affected area. Will continue IV antibiotics. Continue to monitor. Patient aware if not responsive, may need further debridement, which may even include partial amputation of foot if not responsive. Job#: [id number] ID
[2018-02-15] MEDS: ACETAMINOPHEN 325 MG TAB PO PRN (19:16)
[2018-02-15] MEDS ORDERED: INSULIN DETEMIR 100 UNIT/ML PEN SQ SCH (21:00)
--- NOTE | 2018-02-15 21:06 | Consultation ---
DATE OF CONSULTATION: REASON FOR CONSULTATION 1. Bacteremia, MRSA. 2. Infection in the foot, concern for osteomyelitis. This patient who is a very pleasant 57-year-old female with a history of obesity, history of diabetes mellitus, history of neuropathy. She does not really recall what happened, but a few days ago was started having redness and swelling of her right foot. The patient felt dizzy and does not feel well. She was supposed to see the doctor after his office, but she was not feeling well at all. The patient came to emergency room. In the emergency room, she was evaluated and admitted. Blood cultures obtained and is already growing MRSA in the blood and in the wound. The patient has been seen by Dr. Preston Alvarado, and did an I and D on her today. The patient is currently laying in bed. She does not recall exactly the first day or so when she came to the emergency room. In the emergency room, she was quite sick when she first presented. PAST MEDICAL HISTORY: Obesity and diabetes mellitus. PAST SURGICAL HISTORY: Hysterectomy and appendectomy. She also has a history of neuropathy. ALLERGIES: NKA. SOCIAL HISTORY: There is no smoking, drug abuse or alcohol abuse. FAMILY HISTORY: Otherwise diabetes mellitus. REVIEW OF SYSTEMS HEENT: Negative. PULMONARY: Negative. CARDIAC: Negative. : Negative. SKIN: There is no other rash. Currently, she is feeling much better. When she first came, apparently she was quite sick. LABS: Wound showing MRSA. Blood showing MRSA. White count on admission was 18.65, hemoglobin 13 and her platelets are 275,000. Her sodium is 137, potassium 4, creatinine 0.62. C-reactive protein 204. PHYSICAL EXAMINATION GENERAL: She is currently alert and oriented. Does not seem to be in acute distress. VITALS: Stable. Currently afebrile. HEENT: She is normocephalic and not icteric. NECK: Supple. No JVD. No palpable thyromegaly. CHEST: Clear bilaterally. HEART: S1 and S2. No murmurs. ABDOMEN: Soft and obese. No tenderness. EXTREMITIES: The right foot is erythema and there is edema especially around the 5th toe. IMPRESSION 1. Sepsis on admission secondary to methicillin-resistant Staphylococcus aureus bacteremia: Concern about endocarditis. Concern about infection in the foot with bacteremia. Agree with vancomycin. Obtain trough. Will keep the trough between 15 and 20. Recheck blood cultures. Podiatry consulted. Would recommend to do transesophageal echocardiogram, vascular workup, as well as MRI of the foot with and without contrast. Will need a PICC line. Check blood cultures for surveillance. 2. Diabetic control. 3. Neuropathy. Will follow with you. Thank for asking me to see this patient. Job#: [id number] RI
--- NOTE | 2018-02-15 21:19 | Consultation ---
DATE OF CONSULTATION: February 14, 2018 ENDOCRINE CONSULTATION Patient of Dr. Caro, Dr. Mora and Dr. Alvarado. Thank you very much for referring this patient. This is a 57-year-old pleasant lady who is referred to me for evaluation of uncontrolled diabetes mellitus. Patient came to the hospital with swelling and redness of the right foot, which is getting progressively worse. Patient has a chronic ulcer on the right foot. Patient is a known diabetic for almost 5 years, and takes of oral hypoglycemics at home, including glipizide and metformin. She had high-grade fever and chills when she came to the hospital. Her other medical problems include history of hypertension. Other routine medications include sliding scale insulin at this time. PHYSICAL EXAMINATION GENERAL: Today, the patient is alert, awake and a little bit apprehensive. She is moderately overweight. VITALS: Her heart rate is around 78, blood pressure is 109/65 mmHg. HEENT: Essentially unremarkable. Thyroid is palpable. Clinically, she is near euthyroid. CHEST: Bilateral vesicular breathing. She has mild bronchospasm. CARDIOVASCULAR: First and 2nd heart sounds. There is a 3rd and 4th heart sounds. Ejection murmur of 2/6. EXTREMITIES: Patient has evidence of diabetic sensory neuropathy in both lower extremities. She has significant cellulitis and swelling of the right foot with some discharge. Her lab evaluation has revealed so far her white count is elevated at 11.2, hemoglobin is 12.1 with hematocrit of 35.2. Blood sugars have been in the ranges of 351 to 250. Her hemoglobin A1c significantly elevated at 11.4. CLINICAL IMPRESSION 1. Diabetes mellitus, type 2, uncontrolled with complications of abscess and cellulitis of the right foot: Rule out osteomyelitis. 2. Hypertension. 3. Nausea. PLAN: At this time, is to monitor her blood sugars closely. Put her on Levemir and Humalog insulin. Increase the p.o. feedings and adjust insulin dose. Thanks for referring this patient. Will follow this patient with you. Job#: [id number] CHRISTIAN
--- NOTE | 2018-02-15 23:56 | Consultation ---
DATE OF CONSULTATION: February 15, 2018 CARDIOLOGY CONSULTATION REFERRING PHYSICIAN: Dr. Walter Mora REASON FOR CONSULTATION: Bacteremia and foot wound. HISTORY OF PRESENT ILLNESS: Ms. Bhatia is a pleasant 57-year-old woman with history of diabetes mellitus type 2, morbid obesity, who presents to [facility] following subjective fevers and wound to the lateral aspect of the right foot. She was noted to have an abscess, for which she has reportedly undergone incision and drainage and initiation of antibiotics. She did have mild fevers during which she reportedly noted some mild dyspnea, however, no chest pain. She otherwise reports no prior history of exertional symptoms including absence of previous claudication-type discomfort or anginal-type discomfort. She does report a family history significant for coronary artery disease in both mother and father. She thinks the infection originated from recent trauma and she does have a prior history of remote surgery to the right foot on the plantar-medial aspect of this foot. REVIEW OF SYSTEMS: Twelve-system review otherwise is negative except for as noted above. ALLERGIES: PER EMR. PAST MEDICAL HISTORY: Significant for diabetes. SURGICAL HISTORY: Denies any prior cardiac procedures or interventions including any peripheral interventions in the past. She has diabetes mellitus type 2, which is uncontrolled. SOCIAL HISTORY: Denies smoking, alcohol, or drugs. FAMILY HISTORY: Significant for coronary artery disease in mother as well as father. Mother had multiple heart attacks. Father had 3-vessel bypass. PHYSICAL EXAMINATION: VITAL SIGNS: Temperature 97.5, heart rate 69, respiratory rate 18, blood pressure 109/65, O2 sat 100% on room air. GENERAL: In no acute distress, alert, active. NECK: No JVD. No carotid bruits. CHEST: Clear to auscultation bilaterally. CARDIOVASCULAR: Regular rate and rhythm. Normal S1 and S2. No S3, no S4. No murmurs, no rubs. ABDOMEN: Soft, nontender. EXTREMITIES: No cyanosis or clubbing. Trace edema. Right lateral forefoot wound with purulent drainage. Dressings in place. Palpable dorsalis pedis pulses. STUDIES: White blood cells 11.4, hemoglobin 12.1, platelets of 243,000. Erythrocyte sedimentation rate is 74. Sodium 137, potassium 4, chloride 103, bicarbonate 22, BUN 12, creatinine 0.62, glucose 189. TSH 1.029. Alkaline phosphatase 153, albumin is 2.6. Otherwise, rest of LFTs within normal range. CARDIOVASCULAR MEDICATIONS: Reviewed. On Lovenox 40 mg subcutaneous daily. Vancomycin. MICROBIOLOGY: Growing blood cultures, gram positive. ASSESSMENT: 1. Bacteremia. 2. Right foot abscess and wound in the setting of uncontrolled diabetes. 3. Obesity. 4. Episode of shortness of breath in the setting of febrile illness and borderline anemia. 5. Family history significant for coronary artery disease. RECOMMENDATIONS: 1. Echocardiogram transthoracic has been ordered and is pending. Upon review and depending on blood cultures, will consider transesophageal echocardiogram early next week. 2. Arterial Doppler was ordered to screen for peripheral arterial disease in the setting of her wound. Depending on findings, will consider angiography and possible intervention as needed. Agree with antibiotics and wound care. Appreciate the expertise of ID and podiatry. Will collaborate. 3. Uncontrolled diabetes. Optimize while in-house and further aggressive risk factor optimization advised. Once no additional procedure is planned, will benefit from having aspirin as well as statin therapy. Will advice on checking lipid panel while in-house to further evaluate. 4. If shortness of breath recurs in the setting of no fever, further workup is advised. Otherwise, can consider outpatient stress test at a later date. Will follow along with you. Thank you for the opportunity to participate in the care of Ms. Lewis. Job#: [id number]
[2018-02-16] VITALS (8 sets, daily range): BP systolic 116–132; BP diastolic 64–90
[2018-02-16 05:01] LABS: BASOPHILS # (AUTO) 0.1 (0.0-0.1); BASOPHILS % 0.9 % (0.0-1.0); EOSINOPHILS # (AUTO) 0.3 (0.0-0.4); EOSINOPHILS % 3.1 % (0.0-6.0); HEMATOCRIT 35.2 % (34.2-44.1); HEMOGLOBIN 11.9 g/dL (12.0-16.0); LYMPHOCYTES # (AUTO) 2.4 (1.0-3.2); LYMPHOCYTES % 25.3 % (18.0-39.1); MEAN CORPUSCULAR HEMOGLOBIN 27.4 pg (28-32); MEAN CORPUSCULAR HGB CONC 33.8 g/dL (31-35); MEAN CORPUSCULAR VOLUME 80.9 fL (81-99); MONOCYTES # (AUTO) 1.3 (0.2-0.8); MONOCYTES % 13.7 % (4.4-11.3); NEUTROPHILS # (AUTO) 5.3 (2.1-6.9); NEUTROPHILS % 56.3 % (38.7-80.0); PLATELET COUNT 286 x10e3/uL (140-360); RED BLOOD COUNT 4.35 x10e6/uL (3.6-5.1); RED CELL DISTRIBUTION WIDTH 12.3 % (11.7-14.4)
[2018-02-16 05:16] LABS: ANION GAP 14.6 mmol/L (8-16); BLOOD UREA NITROGEN 9 mg/dL (7-26); BUN/CREATININE RATIO 17 (6-25); CALCIUM 9.2 mg/dL (8.4-10.2); CARBON DIOXIDE 22 mmol/L (22-29); CHLORIDE 108 mmol/L (98-107); CREATININE, SERUM 0.53 mg/dL (0.57-1.11); EST GLOMERULAR FILTRATION RATE > 60 ML/MIN (60-); GLUCOSE 224 mg/dL (74-118); MAGNESIUM 1.8 MG/DL (1.3-2.1); POTASSIUM 3.6 mmol/L (3.5-5.1); SODIUM 141 mmol/L (136-145)
[2018-02-16 06:19] LABS: EOSINOPHILS % (MANUAL) 3 % (0-7); LYMPHOCYTES % (MANUAL) 13 % (19-48); MONOCYTES % (MANUAL) 5 % (3.4-9.0); MYELOCYTES % (MANUAL) 1 % (0-0); NEUTROPHILS % (MANUAL) 74 % (40-74); PLATELET ESTIMATE ADEQUATE; PLATELET MORPHOLOGY COMMENT NORMAL; RBC MORPHOLOGY COMMENT NORMAL
[2018-02-16] MEDS: INSULIN LISPRO 100 UNIT/1 ML 3ML VIAL SQ SCH ×6 (08:16→21:00)
[2018-02-16] MEDS: COLLAGENASE 5 GM TUBE TOP SCH (08:41)
[2018-02-16] MEDS: NYSTATIN 100,000 UNITS/GM CRM 30GM TUBE TOP SCH ×2 (08:41→16:52)
--- NOTE | 2018-02-16 11:05 | Progress Note ---
DATE: February 16, 2018 CARDIOLOGY PROGRESS NOTE SUBJECTIVE: No complaints today. Feels better overall. OBJECTIVE VITALS: Temperature 97.5, heart rate 77, respiratory rate 18, blood pressure 117/81. GENERAL: In no acute distress. Alert and active. NECK: No JVD. CHEST: Clear to auscultation bilaterally. CARDIOVASCULAR: Regular rate and rhythm. Normal S1 and S2. No S3 or S4. No murmurs on exam today. ABDOMEN: Soft, nontender and nondistended. EXTREMITIES: No cyanosis or clubbing with trace edema to right lower extremity. Foot wound to the lateral aspect of the forefoot with drain in place. Dressing covering. Mucosa moist. SKIN: Wound to right forefoot. STUDIES: White blood cells 9.4, hemoglobin 11.9 and platelets 286,000. Sodium 141, potassium 3.6, chloride 108, bicarbonate 22, BUN 9, creatinine 0.53, glucose 201. Calcium 9.2. Magnesium 1.4. Initial blood cultures are MRSA positive. Recent blood cultures pending. Echocardiogram and lower extremity arterial ultrasound are being done this morning. Once completed, will provide results. ASSESSMENT 1. Methicillin-resistant Staphylococcus aureus bacteremia. 2. Right lateral forefoot abscess: Status post incision and drainage. 3. Uncontrolled diabetes mellitus. 4. Obesity. RECOMMENDATIONS 1. So far, visualized images of arterial lower extremities on right show triphasic wave forms. However, elevated velocities in the distal AP/dorsalis pedis. Will await final study completion to further review. Suspect some mild to moderate degree of outflow disease based on visualized images so far. 2. Given MRSA bacteremia following transthoracic echocardiogram review, will plan on transesophageal echocardiogram likely tomorrow morning. Will further discuss findings with the patient. 3. Agree with continued antibiotics. 4. Appreciate podiatry's expertise. 5. Endocrine optimizing diabetes. 6. Further outpatient testing from a cardiovascular standpoint advised the patient once this hospitalization is completed and stabilized. Job#: [id number] CHRISTIAN
--- NOTE | 2018-02-16 11:34 | Progress Note ---
DATE: February 16, 2018 SUBJECTIVE: Patient was seen at bedside. Doing better. Denying any history of fever, chills, nausea, or vomiting. Decreased pain to the right lower extremity. OBJECTIVE VITALS: Afebrile, pulse rate 77, respirations 18, blood pressure 117/81, O2 saturation 96%. EXTREMITIES: Ulceration to the 4th interspace of the right lower extremity shows some granulation tissue. Still some drainage noted. Minimal foul smell. Decreased swelling. Decreased cellulitis dorsally and plantarly to the right foot. LABS: Noted. Has a white blood cell count dropping down to 9.3 from a high of 18.65. Hemoglobin 11.9. Has a blood glucose of 201. ASSESSMENT: Grade 4 ulcer, possible osteomyelitis with cellulitis. PLAN: Will continue local wound care with Santyl followed by dilute wet-to-dry b.i.d. Continue IV antibiotics, such as vancomycin and cefepime. Continue off loading. Will continue to follow. Job#: [id number] CHRISTIAN
[2018-02-16] MEDS: VANCOMYCIN 1GM/NS 250 ML 250 ML IV SCH (12:10)
[2018-02-16] MEDS: ENOXAPARIN SOD INJ 40 MG/0.4 ML SYR SC SCH (16:52)
[2018-02-16] MEDS ORDERED: INSULIN DETEMIR 100 UNIT/ML PEN SQ SCH (21:00)
[2018-02-17] VITALS (11 sets, daily range): BP systolic 96–144; BP diastolic 60–88
[2018-02-17] MEDS: VANCOMYCIN 1GM/NS 250 ML 250 ML IV SCH ×2 (00:07→12:05)
[2018-02-17] MEDS: ACETAMINOPHEN 325 MG TAB PO PRN (04:30)
[2018-02-17 05:34] LABS: CHOL/HDL RATIO 6.4 (3.0-3.6)
[2018-02-17] MEDS: INSULIN LISPRO 100 UNIT/1 ML 3ML VIAL SQ SCH ×7 (08:16→21:30)
[2018-02-17] MEDS: NYSTATIN 100,000 UNITS/GM CRM 30GM TUBE TOP SCH ×2 (09:00→17:02)
[2018-02-17] MEDS: COLLAGENASE 5 GM TUBE TOP SCH (09:00)
[2018-02-17] MEDS ORDERED: SODIUM CHLORIDE 0.9% 1000ML 1,000 ML ONE (09:25)
[2018-02-17] MEDS ORDERED: BENZOCAINE 20% SPR 60 ML CAN ONE (09:25)
--- NOTE | 2018-02-17 09:59 | Progress Note ---
DATE: February 17, 2018 SUBJECTIVE: Patient is doing better. Denies any history of fever, chills, nausea or vomiting. OBJECTIVE VITAL SIGNS: Afebrile. Pulse rate 77, respirations 18, blood pressure 129/88, O2 saturation 100%. LABS: Noted. White blood cell count down to 9.3. EXTREMITIES: Ulceration to the right lower extremity healing slowly. Some necrosis noted down to bone to the 4th interspace of the right foot with the ulcer measuring approximately 1.5 to 2 cm in diameter. Also has an ulceration to the lateral aspect of the 5th toe measuring 1.5 to 2 cm in diameter with some swelling noted to the 5th digit right foot. ASSESSMENT: Grade-4 ulcer with possible osteomyelitis. PLAN: Will repeat x-rays, 3 views right foot. Will continue IV antibiotics. Continue local wound care with Santyl followed by diluted wet-to-dry Betadine b.i.d. Will continue to follow. Patient understands further debridement with possible partial amputation may need to be done depending on how the patient responds. Job#: [id number]
--- NOTE | 2018-02-17 11:11 | Progress Note ---
DATE: February 17, 2018 CARDIOLOGY PROGRESS NOTE SUBJECTIVE: No complaints today. Undergoing wound care by podiatry. OBJECTIVE VITAL SIGNS: Reviewed and stable. GENERAL: In no acute distress. Alert NECK: No JVD. CHEST: Clear to auscultation. CARDIOVASCULAR: Regular rate and rhythm. Normal S1 and S2. No S3. No S4. ABDOMEN: Soft and nontender. EXTREMITIES: With no edema. Right forefoot open wound. Amputated 4th and 5th toes. STUDIES: Reviewed. Echocardiogram with hyperdynamic left ventricular systolic function. Trace mitral and tricuspid regurgitation. Lower extremity arterial Doppler with no significant PAD observed. Normal velocities, anterior phasic wave forms. Some mild broadening in the forefoot. However, in the setting of active infection to left foot likely from hyperemia and healing process. ASSESSMENT 1. Bacteremia, methicillin-resistant Staphylococcus aureus. 2. Right foot wound. 3. Diabetes mellitus, uncontrolled. 4. Septicemia. RECOMMENDATIONS 1. Continue current cardiovascular medications and optimization of the . 2. The patient underwent transesophageal echocardiogram today with no evidence of vegetation. Has aneurysmal intra-atrial septum with no significant intracardiac shunt by agitated saline contrast. From cardiovascular standpoint, no evidence of endocarditis. Job#: [id number] CHRISTIAN
[2018-02-17] MEDS ORDERED: GADOBENATE DIMEGLUMINE 1 ML IV ONE (11:20)
[2018-02-17] MEDS ORDERED: MIDAZOLAM HCL 2 MG/2 ML VIAL ONE (13:56)
--- NOTE | 2018-02-17 14:35 | Diagnostic Imaging Report ---
TECHNIQUE: Magnetic resonance imaging of the RIGHT foot (forefoot) was performed WITH and WITHOUT injected contrast, 15 cc of intravenous MultiHance. HISTORY: Diabetic foot infection, rule out osteomyelitis, infection between the last 2 toes COMPARISON: Images from right foot radiographs February 13, 2018. DISCUSSION: Bone: Nonspecific bone marrow edema involving the fifth ray from the metatarsal head to the distal phalanx and to a lesser extent the phalanges of the fourth digit. Relative preservation of the corresponding fatty marrow signal. The cortex of the dorsal aspect of the base of the fifth proximal phalanx is indistinct. Joints: No dislocation. Fluid within the visualized joints is within physiologic limits. Soft Tissues: Prominent regional soft tissue edema involving the lateral aspect of the distal forefoot. No discrete loculated drainable fluid collection. Lateral soft tissue defect overlying the base of the fifth proximal phalanx. IMPRESSION: 1. Subtle findings of the base of the fifth proximal phalanx, compatible with osteomyelitis. Adjacent regional nonspecific reactive bone marrow edema involving multiple bones. 2. No drainable soft tissue abscess. Signed by: Dr. Max Daly D.O., M.M.M. on 02/17/2018 2:32 PM
--- NOTE | 2018-02-17 14:42 | Diagnostic Imaging Report ---
PROCEDURE:X-RAY RIGHT FOOT, COMPLETE COMPARISON:02/13/18 INDICATIONS:DIABETIC FOOT INFECTION FINDINGS: No acute displaced fracture or dislocation. Evaluation of the lateral forefoot is limited due to overlying bandage/packing material. No definite evidence of erosion. Mild periosteal thickening of the second through fourth metatarsals. Slight increase in predominantly forefoot soft tissue swelling. Again seen plantar calcaneal enthesophyte. CONCLUSION: Slight increase in predominantly forefoot soft tissue swelling. Overlying bandage limits evaluation of the lateral forefoot. No definite radiographic signs of osteomyelitis. It is high clinical concern, consider obtaining MRI for better evaluation. Dictated by: Yadiel Madrid M.D. on 02/17/2018 at 14:48 Electronically approved by: Yadiel Madrid M.D. on 02/17/2018 at 14:48
[2018-02-17] MEDS: ACETAMINOPHEN/CODEINE 300MG - 30MG TAB PO PRN (15:44)
[2018-02-17] MEDS: ENOXAPARIN SOD INJ 40 MG/0.4 ML SYR SC SCH (17:02)
--- NOTE | 2018-02-17 17:07 | Diagnostic Imaging Report ---
PROCEDURE: A single AP view of the chest. COMPARISON: 07/23/17 INDICATIONS: PICC LINE PLACEMENT FINDINGS: Lines/tubes: Right PICC in place with tip overlying the inferior SVC. Lungs: The lungs are well inflated and clear. There is no evidence of pneumonia or pulmonary edema. Pleura: There is no pleural effusion or pneumothorax. Heart and mediastinum: The cardiac silhouette is enlarged. Bones: No acute bony abnormality. IMPRESSION: Right PICC in place with tip overlying the inferior SVC. No visible pneumothorax. Dictated by: Yadiel Madrid M.D. on 02/17/2018 at 17:13 Electronically approved by: Yadiel Madrid M.D. on 02/17/2018 at 17:13
[2018-02-17] MEDS ORDERED: INSULIN DETEMIR 100 UNIT/ML PEN SQ SCH (21:00)
[2018-02-18] VITALS: BP 145/70
[2018-02-18] MEDS: VANCOMYCIN 1GM/NS 250 ML 250 ML IV SCH ×2 (00:42→12:22)
[2018-02-18 04:00] VITALS: BP 143/71
[2018-02-18] MEDS: ACETAMINOPHEN/CODEINE 300MG - 30MG TAB PO PRN (05:14)
[2018-02-18] MEDS: INSULIN LISPRO 100 UNIT/1 ML 3ML VIAL SQ SCH ×7 (07:55→21:35)
[2018-02-18 08:00] VITALS: BP 120/71
[2018-02-18] MEDS: COLLAGENASE 5 GM TUBE TOP SCH (08:40)
[2018-02-18] MEDS: NYSTATIN 100,000 UNITS/GM CRM 30GM TUBE TOP SCH ×2 (08:40→17:03)
--- NOTE | 2018-02-18 09:35 | Progress Note ---
DATE: February 18, 2018 SUBJECTIVE: Patient seen at bedside. Doing better but still some significant swelling to the right lower extremity compared to the left. Denies any history of fever, chills, nausea or vomiting. OBJECTIVE: Vitals: Afebrile. Pulse rate 81. Respirations 20. Blood pressure 142/71. O2 saturation 98%. Ulceration to the right lower extremity improving slowly. Still some positive edema. Some drainage. Decreased foul smell. Ulcer down to bone to the 4th interspace and also to the lateral aspect of the 5th digit right foot. ASSESSMENT: Possible osteomyelitis with cellulitis and diabetic neuropathy with grade-4 ulcer. PLAN: X-rays taken yesterday reviewed. No gas in the tissue. Still some moderate amount of soft tissue edema noted. Will continue IV antibiotics. Continue local wound care with Santyl followed by diluted wet-to-dry Betadine. Patient will need at least 4 more weeks of IV antibiotics. Patient understands. Will continue to treat conservatively for now. May need further debridement and possible amputation down the road if not responsive. Job#: [id number]
[2018-02-18 12:00] VITALS: BP 120/67
--- NOTE | 2018-02-18 14:13 | Progress Note ---
DATE: February 18, 2018 CARDIOLOGY PROGRESS NOTE SUBJECTIVE: No complaints. OBJECTIVE VITAL SIGNS: Temperature 98.7, heart rate 74, respiratory rate 17, blood pressure 120/71, O2 sat 96% on room air. GENERAL: No acute distress. Alert. NECK: No JVD. CHEST: Clear to auscultation. CARDIOVASCULAR: Regular rate and rhythm. Normal S1, S2. No S3. No S4. No murmurs or rubs. ABDOMEN: Soft, nontender. EXTREMITIES: No edema. Right foot wound is covered with dressings. CARDIOVASCULAR MEDICATIONS 1. Vancomycin IV every 12 hours. 2. Lovenox 40 mg subcutaneous daily. Glucose 264. Vancomycin 6.7 trough. TELEMETRY: Sinus rhythm. ASSESSMENTS 1. Bacteremia, methicillin-resistant Staphylococcus aureus. 2. Aortic valve endocarditis, non-coronary cusp. Has a 4-mm mobile echodensity in the left ventricular outflow tract aspect consistent with vegetation on further review of transesophageal echocardiogram. Please see separate report. 3. Right foot wound. 4. Diabetes mellitus, uncontrolled. 5. Sepsis, improved. RECOMMENDATIONS 1. Continue current cardiovascular medications. 2. Aneurysmal interatrial septum with no significant intracardiac shunt by agitated saline contrast. 3. OSMAR with evidence of sub-centimeter vegetation of an aortic valve with no prior valvular abscess or valvular dysfunction otherwise. Will discuss with primary and ID. Job#: [id number] ZEINAB
[2018-02-18 16:00] VITALS: BP 137/67
[2018-02-18] MEDS: ENOXAPARIN SOD INJ 40 MG/0.4 ML SYR SC SCH (17:03)
[2018-02-18 20:00] VITALS: BP 126/57
[2018-02-18] MEDS: INSULIN DETEMIR 100 UNIT/ML PEN SQ SCH (21:35)
[2018-02-19] VITALS (8 sets, daily range): BP systolic 121–151; BP diastolic 56–85
[2018-02-19] MEDS: VANCOMYCIN 1GM/NS 250 ML 250 ML IV SCH (00:21)
[2018-02-19] MEDS: INSULIN LISPRO 100 UNIT/1 ML 3ML VIAL SQ SCH ×7 (07:30→20:35)
--- NOTE | 2018-02-19 07:45 | Progress Note ---
DATE: February 19, 2018 SUBJECTIVE: Patient seen at bedside, feeling better. Decreased swelling to the right lower extremity. OBJECTIVE: Vitals: Afebrile. Pulse rate 75, respirations 18, blood pressure 121/56, O2 saturation 94%. Pedal pulses are palpable. There are still some edema and cellulitis to the dorsal aspect and plantar aspect of the right foot. Minor amount of swelling when compared to the contralateral side. Ulcerations to the lateral aspect of the 5th toe and 4th interspace of the right lower extremity healing slowly. Some drainage, negative foul smell. Still some drainage noted. ASSESSMENT: Possible osteomyelitis, 5th digit, right foot. Grade-4 ulcer times 2 with cellulitis. PLAN: Will continue IV antibiotics. Continue local wound care. Patient will need at least 3 to 4 more weeks of IV antibiotics. Will continue to let the foot demarcate. Job#: [id number]
[2018-02-19] MEDS: NYSTATIN 100,000 UNITS/GM CRM 30GM TUBE TOP SCH ×2 (09:00→21:04)
[2018-02-19] MEDS: COLLAGENASE 5 GM TUBE TOP SCH (09:00)
[2018-02-19] MEDS: VANCOMYCIN HCL 1.25 GM in SODIUM CHLORIDE 0.9% 250ML 250 ML IV SCH ×2 (12:30→23:39)
--- NOTE | 2018-02-19 13:31 | Progress Note ---
DATE: February 19, 2018 CARDIOLOGY PROGRESS NOTE SUBJECTIVE: No complaints today. OBJECTIVE: VITAL SIGNS: Temperature. 97.6, heart rate 76, respiratory rate 18, blood pressure 151/76, O2 sat 97% on room air. GENERAL: In no acute distress. Alert. NECK: No JVD. CHEST: Clear to auscultation. CARDIOVASCULAR: Regular rate and rhythm. Normal S1 and S2. No S3, no S4. ABDOMEN: Soft, nontender. EXTREMITIES: No edema. Right foot wound covered with dressings. CARDIOVASCULAR MEDICATIONS: Reviewed. On vancomycin, Lovenox, and insulin. LABORATORY STUDIES: Studies reviewed for today, glucose 215. Vancomycin trough most recent on February 17 was 6.7. TELEMETRY: Most recent telemetry normal sinus rhythm. ASSESSMENT: 1. Bacteremia with Methicillin-resistant Staphylococcus aureus. 2. Aortic valve endocarditis of a noncoronary cusp with a subcentimeter vegetation. 3. Right foot wound. 4. Diabetes mellitus, uncontrolled. 5. Resolved sepsis. PLAN: 1. Continue current cardiovascular medications, particularly antibiotics. Duration deferred to ID. 2. Optimize diabetes management. 3. As outpatient consider stress test for episodes of dyspnea on exertion. Defer this workup for outpatient at this point. Job#: [id number] EV
[2018-02-19] MEDS: ENOXAPARIN SOD INJ 40 MG/0.4 ML SYR SC SCH (17:00)
[2018-02-19] MEDS: INSULIN DETEMIR 100 UNIT/ML PEN SQ SCH (20:36)
[2018-02-20] VITALS (8 sets, daily range): BP systolic 122–165; BP diastolic 63–95
[2018-02-20] MEDS: INSULIN LISPRO 100 UNIT/1 ML 3ML VIAL SQ SCH ×7 (07:30→21:09)
[2018-02-20] MEDS: NYSTATIN 100,000 UNITS/GM CRM 30GM TUBE TOP SCH ×2 (09:00→21:26)
[2018-02-20] MEDS: COLLAGENASE 5 GM TUBE TOP SCH (09:00)
--- NOTE | 2018-02-20 09:28 | Progress Note ---
DATE: February 20, 2018 SUBJECTIVE: Patient seen at bedside. Doing better. Still has some swelling to the right lower extremity. She is denying any history of fever, chills, nausea, or vomiting. OBJECTIVE EXTREMITIES: Pedal pulses are palpable. Skin temperature warm to touch. Moderate amount of swelling noted to the right foot when compared to left. Has cellulitis to left great toe, grade 4 ulcer 4th interspace, right foot, with some foul smell. Also a very swollen 5th digit, right foot, with an ulceration lateral aspect overlying the proximal interphalangeal joint. VITAL SIGNS: She is afebrile. Pulse rate 82, respirations 18, blood pressure 165/95, and O2 saturation 98%. ASSESSMENT: Multiple grade 4 ulcers, osteomyelitis, cellulitis, right, with diabetic neuropathy. PLAN: We will continue Santyl collagenase followed by diluted wet-to-dry Betadine. We will continue IV antibiotics. Continue local wound care. Patient will need IV antibiotics for at least 3 to 4 more weeks and continue local wound care. Ulceration may be debrided depending on how the patient continues to respond. We will let the foot demarcate. Patient aware if not responsive may need a partial amputation. Need to be transferred to [facility] for continued local wound care and IV antibiotics. Job#: [id number]
[2018-02-20 09:46] LABS: BASOPHILS % 0.5 % (0.0-1.0); EOSINOPHILS # (AUTO) 0.2 (0.0-0.4); EOSINOPHILS % 2.3 % (0.0-6.0); HEMATOCRIT 38.5 % (34.2-44.1); HEMOGLOBIN 12.6 g/dL (12.0-16.0); LYMPHOCYTES # (AUTO) 1.8 (1.0-3.2); LYMPHOCYTES % 21.4 % (18.0-39.1); MEAN CORPUSCULAR HEMOGLOBIN 26.8 pg (28-32); MEAN CORPUSCULAR HGB CONC 32.7 g/dL (31-35); MEAN CORPUSCULAR VOLUME 81.9 fL (81-99); MONOCYTES # (AUTO) 0.7 (0.2-0.8); MONOCYTES % 7.7 % (4.4-11.3); NEUTROPHILS # (AUTO) 5.6 (2.1-6.9); NEUTROPHILS % 66.6 % (38.7-80.0); PLATELET COUNT 379 x10e3/uL (140-360); RED CELL DISTRIBUTION WIDTH 12.2 % (11.7-14.4)
[2018-02-20 10:02] LABS: ANION GAP 13.9 mmol/L (8-16); BLOOD UREA NITROGEN 10 mg/dL (7-26); BUN/CREATININE RATIO 16 (6-25); CALCIUM 9.7 mg/dL (8.4-10.2); CARBON DIOXIDE 25 mmol/L (22-29); CHLORIDE 102 mmol/L (98-107); CREATININE, SERUM 0.62 mg/dL (0.57-1.11); EST GLOMERULAR FILTRATION RATE > 60 ML/MIN (60-); GLUCOSE 282 mg/dL (74-118); POTASSIUM 3.9 mmol/L (3.5-5.1); SODIUM 137 mmol/L (136-145)
[2018-02-20] MEDS: VANCOMYCIN HCL 1.25 GM in SODIUM CHLORIDE 0.9% 250ML 250 ML IV SCH ×2 (12:30→23:55)
[2018-02-20] MEDS: ACETAMINOPHEN 325 MG TAB PO PRN (15:32)
[2018-02-20] MEDS: ENOXAPARIN SOD INJ 40 MG/0.4 ML SYR SC SCH (16:35)
--- NOTE | 2018-02-20 17:15 | Progress Note ---
DATE: February 20, 2018 CARDIOLOGY PROGRESS NOTE SUBJECTIVE: No complaints. OBJECTIVE: VITAL SIGNS: Temperature 98.2, heart rate 75, respiratory rate 18, blood pressure 143/83, O2 sat 97% on room air. GENERAL: No acute distress. Alert. NECK: No JVD. CHEST: Clear to auscultation. CARDIOVASCULAR: Regular rate and rhythm. Normal S1 and S2. No S3, no S4. No murmurs or rubs. ABDOMEN: Soft, nontender, nondistended. EXTREMITIES: No edema. CARDIOVASCULAR MEDICATIONS: Vancomycin, Lovenox. LABORATORY STUDIES: Studies reviewed. White blood cells 8.4, hemoglobin 12.6, platelets 379. Creatinine 0.6. UDS, vancomycin 8.8. TELEMETRY: Sinus rhythm. ASSESSMENT: 1. Methicillin-resistant Staphylococcus aureus bacteremia and aortic valve endocarditis. 2. Right foot wound. Undergoing care by Podiatry. 3. Diabetes mellitus, uncontrolled. 4. Resolved sepsis. PLAN: Continue cardiovascular medications and antibiotics as per ID. Continue wound care. Job#: [id number] EV
[2018-02-20] MEDS ORDERED: INSULIN DETEMIR 100 UNIT/ML PEN SQ SCH (21:00)
[2018-02-21 01:08] VITALS: BP 133/79
[2018-02-21 05:23] VITALS: BP 133/73
--- NOTE | 2018-02-21 07:18 | Progress Note ---
DATE: February 21, 2018 SUBJECTIVE: Patient seen at bedside. Doing somewhat better. Still has some swelling and redness to the right lower extremity. Denying any history of fever, chills, nausea or vomiting. OBJECTIVE VITAL SIGNS: Afebrile. Pulse rate 72. Respiration 18. Blood pressure 132/72. O2 saturation 98%. EXTREMITIES: Pedal pulses are palpable. Positive edema noted to the right lower extremity. Ulceration to the 4th interspace getting somewhat better. Still some cellulitis and edema noted to the 4th and 5th digits with the 5th toe right foot being more swollen. Has an ulceration on lateral aspect overlying the proximal interphalangeal joint will cellulitis of the left great toe. LABS: Show a white blood cell count of 8.40, hemoglobin 12.6, platelet count 379,000. Has a blood glucose of 282 as of yesterday. ASSESSMENT: Osteomyelitis, right foot, grade-4 ulcer with cellulitis bilaterally. PLAN: Will continue IV antibiotics such as vancomycin. Will continue local wound care. Patient awaiting transfer to [facility] for IV antibiotics for next 3 to 4 weeks. Prognosis still guarded at this time. Job#: [id number] CQ
[2018-02-21] MEDS: INSULIN LISPRO 100 UNIT/1 ML 3ML VIAL SQ SCH ×5 (07:30→21:00)
[2018-02-21] MEDS: NYSTATIN 100,000 UNITS/GM CRM 30GM TUBE TOP SCH ×2 (09:40→21:00)
[2018-02-21] MEDS: COLLAGENASE 5 GM TUBE TOP SCH (09:40)
[2018-02-21] MEDS: VANCOMYCIN HCL 1.25 GM in SODIUM CHLORIDE 0.9% 250ML 250 ML IV SCH (12:30)
[2018-02-21 13:06] VITALS: BP 134/77
--- NOTE | 2018-02-21 14:02 | Progress Note ---
DATE: February 21, 2018 CARDIOLOGY PROGRESS NOTE SUBJECTIVE: No complaints. OBJECTIVE VITAL SIGNS: Reviewed and stable. GENERAL: No acute distress. Alert. NECK: No JVD. CHEST: Clear to auscultation. CARDIOVASCULAR: Regular rate and rhythm. Normal S1 and S2. No S3, no S4. No murmurs or rubs. ABDOMEN: Soft, nontender, nondistended. EXTREMITIES: No edema. Right foot covered with dressing. CARDIOVASCULAR MEDICATIONS: Reviewed. STUDIES: Reviewed. ASSESSMENT 1. Methicillin-resistant Staphylococcus aureus bacteremia and aortic valve endocarditis. 2. Right foot wound, undergoing wound care. 3. Diabetes, uncontrolled. RECOMMENDATIONS 1. Continue IV antibiotics. 2. Continue wound care. 3. Continue cardiovascular medications. 4. Awaiting dispo. If possible, will transfer to [facility]. Job#: [id number]
[2018-02-21] MEDS ORDERED: INSULIN LISPRO 100 UNIT/1 ML 3ML VIAL SQ SCH (16:30)
[2018-02-21 17:03] VITALS: BP 138/84
[2018-02-21 20:00] VITALS: BP 138/84
[2018-02-21] MEDS ORDERED: INSULIN DETEMIR 100 UNIT/ML PEN SQ SCH (21:00)
[2018-02-21 21:05] VITALS: BP 133/77
[2018-02-21] MEDS: ACETAMINOPHEN 325 MG TAB PO PRN (21:45)
[2018-02-22 00:54] VITALS: BP 112/62
[2018-02-22] MEDS: VANCOMYCIN HCL 1.25 GM in SODIUM CHLORIDE 0.9% 250ML 250 ML IV SCH ×2 (02:00→15:59)
[2018-02-22 04:38] VITALS: BP 114/60
[2018-02-22] MEDS: INSULIN LISPRO 100 UNIT/1 ML 3ML VIAL SQ SCH ×4 (07:30→21:00)
[2018-02-22] MEDS: COLLAGENASE 5 GM TUBE TOP SCH (09:00)
[2018-02-22] MEDS: NYSTATIN 100,000 UNITS/GM CRM 30GM TUBE TOP SCH ×2 (09:00→21:59)
[2018-02-22 09:15] VITALS: BP 125/71
[2018-02-22 13:16] VITALS: BP 117/74
--- NOTE | 2018-02-22 14:29 | Progress Note ---
DATE: February 22, 2018 SUBJECTIVE: Patient seen at bedside. Doing better. Denies any fever, chills, nausea or vomiting. OBJECTIVE VITAL SIGNS: Afebrile. Pulse rate 80. Respirations 20. Blood pressure 117/74, O2 saturation 98%. EXTREMITIES: There is still some edema and cellulitis to the lateral aspect of the right foot. Has a grade 4 ulcer tracking to bone to the 4th interspace with some necrosis noted. Minimal to no foul smell. Has a grade 4 ulcer also tracking to both the lateral aspect 5th digit overlying the proximal phalangeal joint measuring less than 1.5 to 2 cm in diameter. Cellulitis to the dorsal and plantar aspects starting to get significantly better. Has a blood glucose of 273. ASSESSMENT: Grade 4 ulcer osteo with cellulitis, right foot. PLAN: Will continue IV antibiotics such as vancomycin, Bactroban ointment to the left great toe for the cellulitis. Sharp excisional debridement of the ulcers. Both the 5th digit right foot and 4th interspace of the right foot were debrided down to bone and devitalized tissue sharply excised until good viable bleeding tissue was achieved. Sterile dressing was applied with Santyl followed by dilute wet-to-dry Betadine. Will continue offloading. Continue to follow. Patient awaiting to be transferred to [place] for continued IV antibiotics and local wound care to try to avoid amputation. Job#: [id number]
[2018-02-22 20:00] VITALS: BP 131/65
--- NOTE | 2018-02-22 20:26 | Progress Note ---
DATE: February 22, 2018 CARDIOLOGY PROGRESS NOTE SUBJECTIVE: No complaints. OBJECTIVE: VITAL SIGNS: Temperature 96 degrees, heart rate 80, respiratory rate 20, blood pressure 117/74. O2 sat 98% on room air. GENERAL: In no acute distress, alert. NECK: No JVD. CHEST: Clear to auscultation. CARDIOVASCULAR: Regular rate and rhythm. Normal S1 and S2. No S3, no S4. No murmurs, no rubs. ABDOMEN: Soft, nontender. EXTREMITIES: No edema. Right foot wound covered with dressings. CARDIOVASCULAR MEDICATIONS: Reviewed. STUDIES: Reviewed. Glucose is 247. TELEMETRY: Reviewed, in normal sinus rhythm. ASSESSMENT: 1. Methicillin-resistant staphylococcus aureus bacteremia. 2. Aortic valve endocarditis. 3. Right grade 4 ulcer with osteomyelitis and cellulitis, followed by Dr. Preston Alvarado, podiatry. 4. Uncontrolled diabetes. RECOMMENDATIONS: 1. Continue current cardiovascular medication. 2. Continue wound care. 3. IV antibiotics as per ID. 4. Diabetes optimization per Dr. Drake Sapp. Job#: [id number]
[2018-02-22 21:00] VITALS: BP 131/65
[2018-02-22] MEDS ORDERED: INSULIN DETEMIR 100 UNIT/ML PEN SQ SCH (21:00)
[2018-02-22] MEDS: ACETAMINOPHEN 325 MG TAB PO PRN (22:00)
[2018-02-23] VITALS: BP 121/61
[2018-02-23] MEDS: VANCOMYCIN HCL 1.25 GM in SODIUM CHLORIDE 0.9% 250ML 250 ML IV SCH ×2 (01:38→17:27)
[2018-02-23 04:00] VITALS: BP 107/59
[2018-02-23] MEDS: NYSTATIN 100,000 UNITS/GM CRM 30GM TUBE TOP SCH ×2 (09:33→20:18)
[2018-02-23] MEDS: INSULIN LISPRO 100 UNIT/1 ML 3ML VIAL SQ SCH ×8 (09:33→22:15)
[2018-02-23] MEDS: COLLAGENASE 5 GM TUBE TOP SCH (09:33)
[2018-02-23 09:44] VITALS: BP 126/67
--- NOTE | 2018-02-23 11:18 | Progress Note ---
DATE: February 23, 2018 CARDIOLOGY PROGRESS NOTE SUBJECTIVE: No complaints today, doing well. OBJECTIVE: VITAL SIGNS: Temperature 96.6, heart rate 72, respiratory rate 18, blood pressure 126/67, O2 sat 99% on room air. GENERAL: In no acute distress, alert. NECK: No JVD. CHEST: Clear to auscultation. CARDIOVASCULAR: Regular rate and rhythm. Normal S1 and S2. No S3 or S4. No murmurs or rubs. ABDOMEN: Soft, nontender. EXTREMITIES: No edema. Right foot covered with dressings. CARDIOVASCULAR MEDICATIONS: Reviewed. STUDIES: Reviewed. Glucose 235. ASSESSMENT: 1. Uncontrolled diabetes. 2. Right foot wound, undergoing wound care and antibiotics. 3. Methicillin-resistant Staphylococcus aureus bacteremia. 4. Aortic valve endocarditis. RECOMMENDATIONS: 1. Continue current antibiotics and wound care. 2. Undergoing evaluation for possible LTAC soon. Job#: [id number]
[2018-02-23 12:03] VITALS: BP 121/70
--- NOTE | 2018-02-23 15:14 | Progress Note ---
DATE: February 23, 2018 SUBJECTIVE: Patient seen at bedside and doing significantly better after the extensive debridement performed yesterday. OBJECTIVE VITAL SIGNS: Afebrile. Pulse rate 80, respirations 20. Blood pressure 121/70, O2 saturation 99%. EXTREMITIES: Ulcerations to the right foot times 2 healing, nice granulation tissue, some fibrosis noted tracking down to bone. Swollen 4th and 5th digits with decreased cellulitis, positive edema to the dorsal aspect of the right foot with pedal pulses palpable. ASSESSMENT: Osteomyelitis with grade 4 ulcer. and grade 3 ulcer, right foot to the 4th interspace of the 5th digit respectively. PLAN: Will continue Santyl followed by dilute wet-to-dry Betadine. Continue IV antibiotics. Dressing was changed. Patient will be transferred to [place] possibly tomorrow or Saturday. Will continue to follow. Job#: [id number]
[2018-02-23 17:19] VITALS: BP 118/63
[2018-02-23 21:00] VITALS: BP 119/60
[2018-02-23] MEDS: INSULIN DETEMIR 100 UNIT/ML PEN SQ SCH (22:27)
[2018-02-24] VITALS (7 sets, daily range): BP systolic 105–147; BP diastolic 56–73
[2018-02-24] MEDS: VANCOMYCIN HCL 1.25 GM in SODIUM CHLORIDE 0.9% 250ML 250 ML IV SCH ×2 (02:07→14:32)
[2018-02-24] MEDS: INSULIN LISPRO 100 UNIT/1 ML 3ML VIAL SQ SCH ×7 (07:30→21:00)
--- NOTE | 2018-02-24 09:04 | Progress Note ---
DATE: February 24, 2018 CARDIOLOGY PROGRESS NOTE SUBJECTIVE: No complaints. OBJECTIVE: VITAL SIGNS: Temperature 97.5, heart rate 76, respiratory rate 16, blood pressure 121/58, O2 sat 98% on room air. GENERAL: In no acute distress. NECK: No JVD. CHEST: Clear to auscultation. CARDIOVASCULAR: Regular rate and rhythm. Normal S1 and S2. No S3, no S4. No murmurs or rubs. ABDOMEN: Soft, nontender, nondistended. EXTREMITIES: No edema. CARDIOVASCULAR MEDICATIONS: Reviewed. STUDIES: Reviewed. Glucose 216. Vanc trough 8.8. TELEMETRY: In sinus rhythm. ASSESSMENT: 1. Methicillin-resistant Staphylococcus aureus bacteremia and aortic valve endocarditis. 2. Right foot wound, undergoing wound care and antibiotics. 3. Uncontrolled diabetes. RECOMMENDATIONS: 1. Continue current cardiovascular medications, antibiotics, and wound care. 2. Undergoing evaluation for possible LTAC. Job#: [id number]
--- NOTE | 2018-02-24 09:29 | Progress Note ---
DATE: February 24, 2018 SUBJECTIVE: Patient is doing significantly better. Relates feels like she has decreased swelling. Is denying any history of fever, chills, nausea, or vomiting. OBJECTIVE VITAL SIGNS: Afebrile, pulse rate 76, respirations 16, blood pressure 121/58, O2 saturation 98%. EXTREMITIES: Ulceration to the right lower extremity continues to improve. Decreased edema. Decreased drainage. No foul smell. Ulceration showing some granulation tissue both laterally and into the 4th interspace. Cellulitis of left great toe also resolving. Pedal pulses are palpable. Decreased cellulitis dorsally and plantarly, right foot. ASSESSMENT 1. Osteomyelitis, right foot. 2. Grade 4 ulcer healing with cellulitis, both lower extremities. PLAN: Will continue IV vancomycin. Continue local wound care with Santyl followed by dilute wet-to-dry Betadine. Continue Bactroban ointment to the left great toe. Patient awaiting transfer for [facility] for continued IV antibiotics for at least 3 to 4 more weeks. Job#: [id number] MD
[2018-02-24] MEDS: COLLAGENASE 5 GM TUBE TOP SCH (09:37)
[2018-02-24] MEDS: NYSTATIN 100,000 UNITS/GM CRM 30GM TUBE TOP SCH ×2 (09:37→21:17)
[2018-02-24] MEDS: INSULIN DETEMIR 100 UNIT/ML PEN SQ SCH (20:52)
[2018-02-25 00:22] VITALS: BP 115/60
[2018-02-25] MEDS: VANCOMYCIN HCL 1.25 GM in SODIUM CHLORIDE 0.9% 250ML 250 ML IV SCH (02:16)
[2018-02-25 06:06] VITALS: BP 121/66
[2018-02-25] MEDS: INSULIN LISPRO 100 UNIT/1 ML 3ML VIAL SQ SCH ×4 (07:30→11:39)
[2018-02-25 08:00] VITALS: BP 114/65
[2018-02-25 09:35] VITALS: BP 114/65
[2018-02-25] MEDS: COLLAGENASE 5 GM TUBE TOP SCH (10:52)
[2018-02-25] MEDS: NYSTATIN 100,000 UNITS/GM CRM 30GM TUBE TOP SCH (10:52)
[2018-02-25 12:00] VITALS: BP 141/86
--- NOTE | 2018-02-25 13:29 | Discharge Summary ---
PRIMARY CARE DOCTOR: Dr. Mony Caro. FINAL DIAGNOSIS: Methicillin-resistant Staph aureus septicemia present on admission with endocarditis, right diabetic foot ulcer and cellulitis. SECONDARY DIAGNOSES 1. Uncontrolled diabetes, getting better. 2. Hyponatremia, resolved. 3. Obesity. CONSULTANTS 1. Dr. Cotto, cardiovascular. 2. Dr. Mckoy, infectious disease. 3. Dr. Sapp, facepiece line supervisor. 4. Dr. Preston Alvarado, laboratory inspector. PROCEDURES/STUDIES PERFORMED 1. Transesophageal echocardiogram. 2. Magnetic resonance imaging of the right foot. 3. Peripherally inserted central catheter line insertion. 4. Arterial Doppler. HISTORY: Per H\T\P. HOSPITAL COURSE: Patient was admitted with MRSA septicemia. Repeat blood culture is negative. However, on her transesophageal echocardiogram she does have a small aortic valve vegetation about 4 mm. A bedside debridement was done by Dr. Alvarado. MRI is suggestive of osteomyelitis. At this time patient will be discharged to [facility] for a total of 8 weeks of IV vancomycin. We will need to continue to monitor the wound carefully to avoid amputation. Her blood sugar is better. Will continue insulin regimen by Dr. Sapp. Patient was seen and examined today. It took 33 minutes total to discharge this patient. CONDITION ON DISCHARGE: Stable. DISCHARGE MEDICATIONS: Please see medication reconciliation form. LATIA INMAN M.D. Job#: [id number] EV cc:MONY CARO MD
== END 2018-02-25 13:35 | DRG 853 ==
LOC: ER 15:20 → ERHOLD 15:38 → MED/SURG2 18:47
PROVIDERS: ADMIT Internal Medicine; ATTEND Internal Medicine
PROC: 0KBV0ZZ Excision of Right Foot Muscle, Open Approach (ICD-10-PCS; 2018-02-15)
PROC: 02HV33Z Insertion of Infusion Device into Superior Vena Cava, Percutaneous Approach (ICD-10-PCS; principal; 2018-02-17)
DX: A41.02 Sepsis due to Methicillin resistant Staphylococcus aureus (principal); I33.0 Acute and subacute infective endocarditis; L03.115 Cellulitis of right lower limb; E87.1 Hypo-osmolality and hyponatremia; M86.9 Osteomyelitis, unspecified; L97.516 Non-pressure chronic ulcer of other part of right foot with bone involvement without evidence of necrosis; E11.40 Type 2 diabetes mellitus with diabetic neuropathy, unspecified; Z68.35 Body mass index [BMI] 35.0-35.9, adult; E66.01 Morbid (severe) obesity due to excess calories; E11.621 Type 2 diabetes mellitus with foot ulcer; E11.65 Type 2 diabetes mellitus with hyperglycemia; E11.51 Type 2 diabetes mellitus with diabetic peripheral angiopathy without gangrene; Z79.4 Long term (current) use of insulin
CPT/HCPCS: 36415; 36569; 71045; 80048; 80053; 80061; 80202; 82948; 83036; 83735; 84100; 84439; 84443; 85025; 85651; 86140; 87040; 87071; 87075; 87186; 87205; 93306; 93312; 93320; 93325; 93925; 99284; J0692; J1650; J2250; J2270; J2405; J3370; J7030; J7050

== ENCOUNTER → 2019-09-25 | Outpatient (CLI) | payer BC | LOC: CARD 09:38 | PROVIDERS: ATTEND Family Medicine | DX: E11.51 Type 2 diabetes mellitus with diabetic peripheral angiopathy without gangrene (principal); I73.9 Peripheral vascular disease, unspecified | CPT/HCPCS: 93922; 93925 ==

== ENCOUNTER 2021-04-08 21:02 | Emergency (ER) | payer SELFPAY ==
[~2021-04-08] VITALS: Ht 152.4 cm; Wt 82.1 kg
[2021-04-08] MEDS ORDERED: METHYLPREDNISOLONE SOD SUCC 125 MG/2ML VIAL IM ONE (21:30)
[2021-04-08] MEDS ORDERED: KETOROLAC TROMETHAMINE 60 MG/2 ML VIAL IM ONE (21:30)
[2021-04-08] MEDS ORDERED: KETOROLAC TROMETHAMINE 60 MG/2 ML VIAL ONE (21:35)
[2021-04-08] MEDS ORDERED: METHYLPREDNISOLONE SOD SUCC 125 MG/2ML VIAL ONE (21:35)
[2021-04-08 22:37] VITALS: BP 97/65
[2021-04-08] MEDS ORDERED: METHOCARBAMOL750 MG PO (22:39)
[2021-04-08] MEDS ORDERED: NAPROSYN500 MG PO (22:39)
== END 2021-04-08 22:44 | disposition home or self-care (01) ==
LOC: ER 21:41
DX: M25.552 Pain in left hip (principal); M25.551 Pain in right hip; E11.9 Type 2 diabetes mellitus without complications; Z86.79 Personal history of other diseases of the circulatory system
CPT/HCPCS: 99282; J1885; J2930

== ENCOUNTER 2022-02-20 18:41 | Emergency (ER) | payer BC ==
[~2022-02-20] VITALS: Ht 152.4 cm; Wt 82.1 kg
[~2022-02-20 18:41] MED LIST changes: +METHOCARBAMOL750 MG PO; +NAPROSYN500 MG PO
[2022-02-20] MEDS ORDERED: MECLIZINE HCL 12.5 MG TAB PO ONE (19:30)
[2022-02-20] MEDS ORDERED: ONDANSETRON HCL 4 MG ORAL DISINTEGRATING TAB PO ONE (19:30)
[2022-02-20] MEDS ORDERED: ONDANSETRON HCL 4 MG ORAL DISINTEGRATING TAB ONE (19:37)
[2022-02-20] MEDS ORDERED: MECLIZINE HCL 12.5 MG TAB ONE (19:37)
[2022-02-20] MEDS ORDERED: ANTIVERT25 M1 PO (19:54)
[2022-02-20] MEDS ORDERED: SODIUM CHLORIDE 0.9% 1000ML 1,000 ML IV ONE (21:30)
[2022-02-20 21:43] LABS: BASOPHILS % 0.4 % (0.0-1.0); EOSINOPHILS # (AUTO) 0.1 (0.0-0.4); EOSINOPHILS % 1.5 % (0.0-6.0); HEMATOCRIT 40.5 % (34.2-44.1); HEMOGLOBIN 13.3 g/dL (12.0-16.0); LYMPHOCYTES # (AUTO) 2.5 (1.0-3.2); LYMPHOCYTES % 31.7 % (18.0-39.1); MEAN CORPUSCULAR HEMOGLOBIN 26.8 pg (28-32); MEAN CORPUSCULAR HGB CONC 32.8 g/dL (31-35); MEAN CORPUSCULAR VOLUME 81.5 fL (81-99); MONOCYTES # (AUTO) 0.7 (0.2-0.8); MONOCYTES % 8.9 % (4.4-11.3); NEUTROPHILS # (AUTO) 4.6 (2.1-6.9); NEUTROPHILS % 57.4 % (38.7-80.0); PLATELET COUNT 260 x10e3/uL (140-360); RED BLOOD COUNT 4.97 x10e6/uL (3.6-5.1); RED CELL DISTRIBUTION WIDTH 14.4 % (11.7-14.4)
[2022-02-20 21:55] LABS: ANION GAP 14.8 mmol/L (8-16); CALCIUM 9.9 mg/dL (8.4-10.2); CREATININE, SERUM 0.94 mg/dL (0.57-1.11); POTASSIUM 3.8 mmol/L (3.5-5.1)
[2022-02-20 22:38] VITALS: BP 135/83
== END 2022-02-20 22:39 | disposition home or self-care (01) ==
LOC: ER 19:18
DX: R11.2 Nausea with vomiting, unspecified (principal); H81.10 Benign paroxysmal vertigo, unspecified ear; E11.9 Type 2 diabetes mellitus without complications
CPT/HCPCS: 36415; 70450; 80048; 85025; 99284; J7030; J8597; Q0162